=== PATIENT | female | born 1975 | race Caucasian/White ===

== ENCOUNTER 2018-09-15 14:08 | Emergency (ER) | payer BC, SELFPAY ==
[2018-09-15 14:13] VITALS: BP 173/93; PULSE 115; RESP 16; TEMP 37.2; O2SAT 99
[2018-09-15 15:41] VITALS: BP 111/62; PULSE 62; TEMP 36.7; O2SAT 100
[2018-09-15 15:45] VITALS: BP 137/77; PULSE 94; RESP 18; TEMP 36.9; O2SAT 97
--- NOTE | 2018-09-15 16:12 | ED.GENADUL_ITS ---
Discharge Plan Disposition Patient Disposition: HOME Condition: Stable Discharge Details Chief Complaint: Sorethroat Clinical Impression: Acute streptococcal pharyngitis Primary Care Provider: Denise Wheeler ED Provider: Tish Nascimento Home Meds and New Rx's Prescriptions: New cephalexin [Keflex] 500 mg capsule 500 mg PO BID 10 Days Qty: 20 RF: 0 Continued furosemide 20 MG tablet 40 mg PO DAILY Qty: 2 RF: 0 dipyridamole 25 MG tablet 25 mg PO TID RF: 0 cholecalciferol (vitamin D3) [Vitamin D3] 2,000 UNIT capsule 2,000 unit PO HS RF: 0 prednisone 10 MG tablet 5 mg PO DAILY RF: 0 sildenafil [Viagra] 25 MG tablet 25 mg PO TID RF: 0 omeprazole 10 MG capsule,delayed release(DR/EC) RF: 0 methotrexate sodium 2.5 MG tablet 8 tab PO DIRECTED RF: 0 aspirin [Aspirin Low-Strength] 81 MG tablet,chewable 81 mg PO DAILY RF: 0 folic acid 1 MG tablet 2 mg PO HS RF: 0 calcium carbonate-vitamin D3 1 EACH tablet 3 tab PO DAILY RF: 0 nifedipine 60 mg Tablet Extended Release 60 mg PO DAILY RF: 0 Discharge Instructions Instructions: Pharyngitis (ED) Additional Instructions: Take Tylenol as needed and directed for pain. Call your primary care doctor for reevaluation next week. Follow-up with your scheduled appointment with your deburring machine operator next month. Follow-up with an ear nose and throat doctor for evaluation of your chronic postnasal drip. Return to the emergency department if you develop any worsening or new concerning symptoms. Referrals: Red Rogel MD [ 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 Vitals within normal limits. Afebrile. Patient appears nontoxic. She has posterior pharyngeal erythema and edema but uvula is midline and there is no peritonsillar abscess. No lymphadenopathy. No submandibular swelling. No drooling. Lungs clear to auscultation. No hepatosplenomegaly. Rapid strep positive. There is an interaction with amoxicillin with her methotrexate. Prescription for Keflex given. Patient also complained of chronic postnasal drip since March. She was instructed that the most common cause for this could be allergies and to consider [id number] allergy oral medication or intranasal steroids. She is instructed to follow-up with primary care doctor for reevaluation and for referral to ENT if her postnasal drip does not improve or worsens as a polyp is also consideration. She is instructed to follow-up with her scheduled appointment with her deburring machine operator next month. She is instructed to return here worse. Medical Records Medical records reviewed: Yes I reviewed the patient's medical records. Lab Data Lab results reviewed: Yes I reviewed the patient's lab results. Rapid strep positive. HPI General Mode of arrival: ambulatory . Date/Time Provider Initiated Documentation: 09/15/18 16:07 . Limitations to Documentation: no limitations . Information obtained by: patient . HPI Narrative: Patient is a 43-year-old female with a history of sore throat since yesterday. Patient admits to pain with swallowing. She also admits to occasional cough with occasional mucus but otherwise denies any shortness of breath. She denies any known fever. She does admit to chronic postnasal drip since March. She states she saw her primary care doctor for this 1 month ago and was prescribed Z-David without improvement. Patient states she is chronically immunosuppressed due to being on methotrexate for her polyarteritis nodosa. She states she last received this injection yesterday which she receives weekly. She denies any neck pain. Related Data Home Medications Medication Instructions Recorded Confirmed furosemide 40 mg PO DAILY #2 tab-cap 01/18/16 09/15/18 aspirin [Aspirin Low-Strength] 81 mg PO DAILY 06/20/16 09/15/18 calcium carbonate-vitamin D3 3 tab PO DAILY 06/20/16 09/15/18 folic acid 2 mg PO HS 06/20/16 09/15/18 methotrexate sodium 8 tab PO DIRECTED 06/20/16 09/15/18 omeprazole 06/20/16 prednisone 5 mg PO DAILY 06/20/16 09/15/18 sildenafil [Viagra] 25 mg PO TID 06/20/16 09/15/18 cholecalciferol (vitamin D3) 2,000 unit PO HS 10/09/17 09/15/18 [Vitamin D3] dipyridamole 25 mg PO TID tab-cap 10/09/17 09/15/18 cephalexin [Keflex] 500 mg PO BID 10 Days #20 cap 09/15/18 nifedipine 60 mg PO DAILY 09/15/18 09/15/18 Previous Rx's Medication Instructions Recorded cephalexin [Keflex] 500 mg PO BID 10 Days #20 cap 09/15/18 Allergies Allergy/AdvReac Type Severity Reaction Status Date / Time lactose AdvReac Intermediate stomach Unverified 09/15/18 14:13 aches General Stated Complaint: Sorethroat ARMANI: 4 Review of Systems Review of Systems All systems reviewed & are unremarkable except as noted in HPI and below Constitutional Reports as per HPI, Denies chills and Denies fever(s) Eyes Denies blurry vision ENT Denies dizziness, Reports sore throat and Denies throat swelling Cardiovascular Denies chest pain and Denies dyspnea Respiratory Reports cough and Denies dyspnea Gastrointestinal Denies abdominal pain, Denies diarrhea and Denies vomiting Genitourinary Denies hematuria and Denies dysuria Musculoskeletal Denies back pain and Denies numbness Integumentary/Breasts Denies lesions and Denies rash Neurologic Denies dizziness, Denies focal weakness and Denies numbness Allergic/Immunologic Denies throat swelling [facility] Medical History Polyarteritis nodosa (Acute) Obesity (Chronic) Surgical History Appendectomy Endometrial Ablation Family History Mother RA (rheumatoid arthritis) Essential hypertension Hyperlipidemia Father Essential hypertension Hyperlipidemia Grandmother Breast cancer Grandmother Breast cancer Social History Smoking/Tobacco Use Status: Never Alcohol Intake: never Drug use: Never Do you feel safe at home: Yes Do you feel safe in your relationship?: Yes Exam Const General: cooperative and healthy appearing Orientation: alert and awake [facility] Head: normal to inspection Ears: hearing grossly normal bilaterally, external ears normal and TM's normal bilaterally General nose exam: external nose normal Face and sinus: normal facial exam Mouth: oral mucosae normal Teeth and gingiva: dentition normal Throat: uvula midline, no peritonsillar masses and posterior oropharynx abnormal edema and erythema; no exudates Eyes General: appearance normal, both eyes and all related structures Eyelids: eyelids normal Pupils: PERRL EOM: EOM intact bilaterally Neck Neck: normal visual inspection, no meningeal signs, trachea midline, supple, no anterior neck swelling and No submandibular swelling Lymphatic: no lymphadenopathy noted Chest Chest: normal inspection of the chest Resp Effort & Inspection: normal respiratory effort and able to speak in complete sentences Auscultation: clear to auscultation bilaterally Cardio Rate: regular rate Rhythm: regular rhythm GI Inspection: normal to inspection Palpation: soft, not firm, no guarding, no hepatosplenomegaly, no masses and nontender Auscultation: normal bowel sounds Skin General skin exam: no rashes or lesions noted Neuro General: alert and awake Cognition: normal cognition Speech: speech normal Gait: normal gait Motor: muscle tone normal throughout Sensory Exam: no sensory deficits noted Extrem General: normal to inspection, full ROM and normal capillary refill Psych Appearance: grossly normal Mental Status: mental status grossly normal Speech and Movement: speech and movement normal Affect: normal affect Thought Process: normal Course Vital Signs Temperature 99.0 F 09/15/18 14:13 Pulse 115 H 09/15/18 14:13 Respiratory Rate 16 09/15/18 14:13 Blood Pressure 173/93 H 09/15/18 14:13 Pulse Oximetry 99 09/15/18 14:13 Temperature 98.4 F 09/15/18 15:45 Temperature Source Temporal Artery Scan 09/15/18 15:45 Pulse 94 H 09/15/18 15:45 Respiratory Rate 18 09/15/18 15:45 Respiratory Effort 09/15/18 14:13 Blood Pressure 137/77 09/15/18 15:45 Blood Pressure Position Sitting 09/15/18 14:13 Pulse Oximetry 97 09/15/18 15:45 Oxygen Delivery Method Room Air 09/15/18 15:45 Oxygen Flow Rate 0 09/15/18 15:45 Lab/Test Results Lab/Test Results: POC Strep Test-HEATHER(Rapid) Start: 09/15/18 14:22 Freq: Status: Active Protocol: Document 09/15/18 14:22 AC (Rec: 09/15/18 14:22 AC [email or web address]) Strep test-HEATHER(Rapid)-POC POC-Strep test-HEATHER (Rapid) Positive POC-Strep test-HEATHER (Rapid) Positive
== END 2018-09-15 16:29 | disposition home or self-care (01) ==
PROVIDERS: Emergency Provider Physician Assistant; PCP Family Medicine
DX: J02.0 Streptococcal pharyngitis (principal)
CPT/HCPCS: 87880; 99283

== ENCOUNTER 2019-04-03 06:08 | Day surgery (SDC) | payer BC, SELFPAY ==
[2019-04-03] VITALS (27 sets, daily range): BP systolic 128–157; BP diastolic 62–100; PULSE 69–86; RESP 11–20; TEMP 36.2–36.6; O2SAT 93–100
[2019-04-03] MEDS: fentaNYL 100 MCG/2 ML VIAL ×2 (06:20→06:25)
[2019-04-03] MEDS: Midazolam 2 MG/2 ML VIAL (06:22)
--- NOTE | 2019-04-03 06:40 | DI.RAD_ITS ---
EXAM: XR KNEE RT 1V INDICATION: trauma. COMPARISON: RIGHT KNEE COMPLETE from 04/14/2008 TECHNIQUE: 2D digital imaging was performed. FINDINGS: A single frontal view of the knee was obtained. There is lateral dislocation of the patella. There is a 1.2 centimeter osseous density superior to the patella which may represent a displaced fracture. Degenerative changes are present. There is an area of sclerosis seen in the distal metaphyseal reg ion of the right femur. This is unchanged compared to the prior examination from 04/14/2008. IMPRESSION: 1. Lateral patellar dislocation. 2. 1.2 cm density superior to the patella suspicious for a chip or avulsion fracture. 3. Stable area of sclerosis in the distal metaphysis of the right femur since 04/14/2008. This may r epresent a bone island or ossifying fibroma
[2019-04-03] MEDS: MORPHine 10 MG/ML VIAL 6 MG IVP (06:54)
--- NOTE | 2019-04-03 06:55 | W.ED.GENAD ---
Discharge Plan Disposition Patient Disposition: [facility] INPATIENT Condition: Stable Discharge Details Chief Complaint: Orthopedic Clinical Impression: Closed dislocation of right patella Primary Care Provider: Denise Wheeler ED Provider: Harry Silva Meds and New Rx's Prescriptions: No Action furosemide 20 MG tablet 40 mg PO DAILY Qty: 2 RF: 0 dipyridamole 25 MG tablet 25 mg PO TID RF: 0 cholecalciferol (vitamin D3) [Vitamin D3] 2,000 UNIT capsule 4,000 unit PO HS RF: 0 prednisone 10 MG tablet 5 mg PO DAILY RF: 0 sildenafil [Viagra] 25 MG tablet 25 mg PO TID RF: 0 omeprazole 10 MG capsule,delayed release(DR/EC) 10 mg PO DAILY RF: 0 methotrexate sodium 2.5 MG tablet 8 tab PO DIRECTED RF: 0 aspirin [Aspirin Low-Strength] 81 MG tablet,chewable 81 mg PO DAILY RF: 0 folic acid 1 MG tablet 2 mg PO HS RF: 0 calcium carbonate-vitamin D3 1 EACH tablet 3 tab PO DAILY RF: 0 nifedipine 60 mg Tablet Extended Release 60 mg PO DAILY RF: 0 Medical Decision Making Patient with right patella dislocation. The dislocation occurred prior to her falling and she has history of same. No injury with the fall. Vital signs normal. She had received fentanyl in route. She was given more fentanyl here and I attempted to get the leg extended and reduce the patella. She was unable to tolerate this at all. Patient was verbally consented for procedural sedation with fentanyl and Versed. Risk and benefits were discussed with her. She was placed on the monitor and oxygen with capnometry applied. She was given more fentanyl as well as Versed and was appropriately sedated. However, even with this sedation still unable to get her fully extended or get the patella reduced. Case discussed with orthopedics, Dr. Lugo. He will come in and take the patient to the operating room for closed reduction. Patient made aware. Now that her sedation is worn off she is complaining of pain. She is given IV morphine for pain control until she can be taken to the OR. HPI General Mode of arrival: EMS. Date/Time Provider Initiated Documentation: 04/03/19 06:25. Limitations to Documentation: no limitations. Information obtained by: patient, EMS and RN notes reviewed. HPI Narrative: Patient is brought in by EMS after her right patella dislocated while walking her dog. She has history of similar problems. Once it dislocated she fell. She denies injury from the fall itself. Usually she is able to get the patella reduced on her own. She was unable to do that this time. She was outside for close to half an hour before family realized that. EMS was called. She was given fentanyl in route and arrives here with complaint of right knee pain. Related Data Home Medications Medication Instructions Recorded Confirmed furosemide 40 mg PO DAILY #2 tab-cap 01/18/16 04/03/19 aspirin [Aspirin Low-Strength] 81 mg PO DAILY 06/20/16 04/03/19 calcium carbonate-vitamin D3 3 tab PO DAILY 06/20/16 04/03/19 folic acid 2 mg PO HS 06/20/16 04/03/19 methotrexate sodium 8 tab PO DIRECTED 06/20/16 04/03/19 omeprazole 10 mg PO DAILY 06/20/16 04/03/19 prednisone 5 mg PO DAILY 06/20/16 04/03/19 sildenafil [Viagra] 25 mg PO TID 06/20/16 04/03/19 cholecalciferol (vitamin D3) 4,000 unit PO HS 10/09/17 04/03/19 [Vitamin D3] dipyridamole 25 mg PO TID tab-cap 10/09/17 04/03/19 nifedipine 60 mg PO DAILY 09/15/18 04/03/19 Allergies Allergy/AdvReac Type Severity Reaction Status Date / Time lactose AdvReac Intermediate stomach Unverified 04/03/19 06:48 aches General Stated Complaint: Orthopedic ARMANI: 2 Review of Systems Narrative: 01/21 Review of Systems completed and is negative except as stated above in HPI (Systems reviewed: Const, Eyes, ENT, Resp, CV, GI, , MSK, Skin, Neuro) [facility] Medical History (Updated 04/03/19 @ 06:53 by Harry Silva MD) Obesity (Chronic) Polyarteritis nodosa (Acute) Vasculitis (Chronic 10/09/17) Surgical History Appendectomy Endometrial Ablation Social History Smoking/Tobacco Use Status: Never Alcohol Intake: never Drug use: Never Substance use type: does not use Do you feel safe at home: Yes Do you feel safe in your relationship?: Yes Exam Narrative Exam Narrative: Vitals: Afebrile. Vital signs normal with normal room air pulse ox. Const: Obese female very uncomfortable and in pain. HEENT: NC/AT. Normal facial exam. Neck: Supple. Trachea midline. Lungs: Normal respiratory effort. Lungs are clear. Cor: RRR without murmur/gallop. Good distal pulses. Neuro: A+O x 3. Normal speech and mentation. No gross motor or sensory deficit. Ext: Right lower extremity flexed. Unable to extend without severe pain. Patella dislocation laterally noted. Neurovascularly intact distally. Skin: Warm and dry with abrasion or laceration. Course Vital Signs Vital signs: Vital Signs Temperature 97.9 F 04/03/19 06:04 Pulse 71 04/03/19 06:04 Respiratory Rate 20 04/03/19 06:04 Blood Pressure 137/89 04/03/19 06:04 Pulse Oximetry 99 04/03/19 06:04 Temperature 97.9 F 04/03/19 06:04 Temperature Source Skin 04/03/19 06:04 Pulse 71 04/03/19 06:04 Respiratory Rate 20 04/03/19 06:04 Blood Pressure 137/89 04/03/19 06:04 Blood Pressure Position Supine 04/03/19 06:04 Pulse Oximetry 99 04/03/19 06:04 Oxygen Delivery Method Room Air 04/03/19 06:04 Oxygen Flow Rate 0 04/03/19 06:04 Pain Level 10 04/03/19 06:04 Procedures Procedural Sedation Indication: fracture/dislocation reduction Presedation Evaluation: Patient with right patella dislocation not tolerating attempted reduction with just pain medication. Neurovascularly intact distally. Normal vital signs. ASA Class: III Preparation: alarm security or surveillance monitor applied, pulse oximeter, capnometry used, supplemental O2 applied, suction/airway equipment at bedside and IV secured Fentanyl: IV Midazolam: IV Patient Tolerated Procedure: no complications Complications: none Additional Comments: A total of 200 mcg of fentanyl and 2 mg of Versed given. Patient appropriately sedated but still unable to get leg fully extended or patella reduced.
--- NOTE | 2019-04-03 07:47 | DI.VRAD_ITS ---
PROCEDURE INFORMATION: Exam: XR Right Knee Exam date and time: 04/03/2019 6:41 AM Age: 43 years old Clinical indication: Injury or trauma; Initial encounter; Patella or knee; Right; Severity of dislocation not specified; Injury date: 04/03/19; Injury details: Fall, trauma TECHNIQUE: Imaging protocol: XR Right knee. Views: 1 or 2 views. COMPARISON: No relevant prior studies available. FINDINGS: There is a single portable images submitted for review. The patella is laterally dislocated. There is a mineralized density superior to the patella which measures 1.2 cm. Mild degenerative changes with small osteophyte formation at the lateral and patellofemoral compartments. Indeterminate 3.2 cm lobulated area of sclerosis at the distal femoral metadiaphysis. IMPRESSION: 1. Lateral patellar dislocation. There is a 1.2 cm mineralized density at the superior aspect of the patella which may represent a chip or avulsion fracture. There is limited evaluation, as described. 2. Mild degenerative arthritis. 3. Indeterminate lobulated sclerosis of the distal femoral metadiaphysis which may represent bone island, ossifying fibroma, among others. Dictated and Authenticated by: Chelle Neely MD. Ordering:LEX Mcdonald MD
[2019-04-03] MEDS: Bupivacaine 0.25% Pres-Free 30 ML VIAL (07:50)
[2019-04-03] MEDS: Lactated Ringers 1,000 ML 30 ML IV (08:05)
[2019-04-03] MEDS: Ketorolac 15 MG/ML VIAL IVP (08:15)
[2019-04-03] MEDS: HYDROcodone 5/Acetaminophen 325 TAB PO (10:24)
--- NOTE | 2019-04-04 06:48 | ROE_ITS ---
REPORT OF OPERATIVE PROCEDURE DATE OF PROCEDURE April 03, 2019 PREOPERATIVE DIAGNOSIS Dislocated right patella. POSTOPERATIVE DIAGNOSIS Dislocated right patella. PROCEDURES 1. Closed reduction of dislocated right patella. 2. Injection right knee with local anesthetic. ANESTHESIA General, Pranay Almodovar, GIANA INDICATIONS This is a 43-year-old white female who had a misstep while walking her dog earlier today dislocating her right patella. She has dislocated this patella numerous times in the past. She has always been ab le to self reduce it. This time, she was unable to reduce it. She went to the Emergency Room where vianey connor attempts at reduction were unsuccessful using conscious sedation. I was consulted and recommen ded that the reduction be performed under general anesthesia. The patella was displaced completely l aterally and rotated 90 degrees to its normal axis so that the patella was facing directly laterally. I was concerned about possible fracture of the patella as it was reduced; therefore, I felt that it should be done with muscle paralysis so there would be not much force. The risks and complications we re explained to the patient and her in detail. I also discussed with them possible open reduc tion if closed reduction was unsuccessful. PROCEDURE The patient was taken to the Operating Room on 04/03/2019. She was kept on her ER stretcher. A genera l anesthetic was administered and muscle relaxation with succinylcholine was given. Once she had good relaxation, I simply extended her knee and I was able to reduce the patella with almost no force. I then using sterile technique injected into the knee 20 cc of 0.5% Marcaine solution for postoperative analgesia. Gentle flexion of the knee showed that the patella was fairly stable and did not tend to dislocate. The patient was placed in a knee immobilizer splint. Her anesthesia was reversed without c omplications. She was discharged to the Recovery Room in good condition. The patient was later discharged home from the second floor nursing unit when fully recovered from he r anesthesia. She was given instructions to use crutches to walk along with the knee immobilizer spli nt. She will be weightbearing as tolerated to the right leg. She was told to use the immobilizer spli nt at all times, except to shower and dress. When she is out of the immobilizer splint, she is cautio cody to keep her leg extended so that the patella will stay reduced. I told her I did not want her sha ding her knee for the next 6 weeks. The patient is told to take ibuprofen 800 mg p.o. q. 6 hours p.r.n. for pain at home. She is instruct ed to apply ice to her patella four times a day for an hour each time over the next two to three days . She is going to call my office later this week and make an appointment for three weeks for follow up.
== END 2019-04-03 11:25 | disposition home or self-care (01) ==
LOC: ER 07:43 → DSU 07:47 → ICU 08:59
PROVIDERS: Emergency Provider Emergency Medicine; PCP Family Medicine; Visit Provider Orthopaedic Surgery
PROC: 0QSFXZZ Reposition Left Patella, External Approach (ICD-10-PCS; CPT 20610; principal; 2019-04-03 07:30)
DX: M22.01 Recurrent dislocation of patella, right knee (principal)
CPT/HCPCS: 20610; 27562; 27560; 96374; 96375; 99285; 73560; 99283; J1885; J2250; J2270; J2405; J3010; L1830

== ENCOUNTER 2019-04-29 00:52 | Outpatient (CLI) | payer BC, SELFPAY ==
--- NOTE | 2019-04-29 15:46 | DI.CT_ITS ---
EXAM: CT LOWER EXTREMITY RT WO CLINICAL HISTORY: RECURRENT DISLOCATION R KNEE, S83.004A TECHNIQUE: CT examination of the knee was performed utilizing multislice acquisition and multiplanar reconstruction. COMPARISON: No exams were available for comparison FINDINGS: There is marked lateral patellar subluxation, which appears chronic, with subchondral sclerosis of ce ntral portion of the patella and of the lateral trochlea with marked hypertrophic changes of the late ral trochlea and subchondral cyst formation at this site as well. Small osseous bodies are present m edial and inferior to the patella, probably chronic. No acute fracture seen. Moderate marginal oste ophyte formation seen associated with medial and lateral tibiofemoral joints as well. IMPRESSION: Findings consistent with marked chronic lateral patellar subluxation and associated degenerative adames ges.
== END 2019-04-29 01:12 ==
PROVIDERS: PCP Family Medicine; Visit Provider Orthopaedic Surgery
DX: M22.01 Recurrent dislocation of patella, right knee (principal); M85.48 Solitary bone cyst, other site; M17.11 Unilateral primary osteoarthritis, right knee
CPT/HCPCS: 73700

== ENCOUNTER 2019-06-19 09:10 | Outpatient (CLI) | payer BC, SELFPAY | END 2019-06-19 09:30 | PROVIDERS: PCP Family Medicine; Visit Provider Student in an Organized Health Care Education/Training Program | DX: Z01.818 Encounter for other preprocedural examination (principal) ==

== ENCOUNTER 2019-06-24 07:06 | Inpatient (IN) | payer BC, SELFPAY ==
[2019-06-19 09:20] VITALS: BP 126/78; PULSE 85; RESP 18; TEMP 37.1; O2SAT 97
--- NOTE | 2019-06-19 11:05 | NUR.NOTE ---
Addendum entered by Conor Wolfe 06/19/19 13:16: Spoke with pAlexis via phone on 06/19/19 @ [id number]: Pt. 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 Lugo's instructions. Original Note: 06/19/19: Contacted Parish's office messaged [facility] and spoke with Kari (10:26) regarding pt. instructions to hold or continue taking her Dipyridamole, aspirin, and viagra, and prednisone this RN stated they should contact pt. prescribing provider Jazmyne Servin @ [facility]. Kari stated office will contact provider, can contact pt. at home with instructions. During visit, this RN received a message from Bridger from orthopedics office, stating that per Dr. Lugo's instructions, pt. is to okay for aspirin up until DOS, Prednisone of okay to take morning of, and to hold the dipridamole and viagra day of surgery. It was also conveyed to ortho office for them to reach out to Swimming Pool Maintenance to verify. Pt. stated that she will contact her as well for further clarification. Office stated they will contact pt. Nursing Note:
--- NOTE | 2019-06-19 16:19 | CMPROGNOTE_ITS ---
- If Service Date Differs Date of service: 06/19/19 Time of Service: 16:19 Care Management Progress Note CM was consulted to meet with Yvonne during her pre op visit for her Patella Realignment scheduled for 06/24/[address] Lugo. Yvonne lives in [place] with her , Juan and their sixteen year old son. Juan is disabled from a car accident many years ago, so he is home and will be providing Yvonne with her care, as needed at home. 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 She has [employer]BS through work. She already has crutches, a FWW, a raised toilet seat and a shower chair. She does not have an AD, or access to the Portal, but may be interested in both post surgically. Dr. Lugo set the expectation with Yvonne that she may be at [facility] recovering for 3-4 days. Yvonne did not have any additional questions or concerns at this time.
[2019-06-24] VITALS (8 sets, daily range): BP systolic 107–142; BP diastolic 56–92; PULSE 67–96; RESP 12–19; TEMP 36.3–36.8; O2SAT 96–100
[2019-06-24] MEDS: Lactated Ringers 1,000 ML 80 ML IV ×2 (08:20→16:15)
[2019-06-24] MEDS: ceFAZolin 3,000 MG in Normal Saline 100 ML 200 MG IVPB (11:45)
--- NOTE | 2019-06-24 11:45 | DI.RAD_ITS ---
EXAM: XR KNEE RT 1V CLINICAL HISTORY: DISLOCATION OF RIGHT PATELLA TECHNIQUE: 2D and realtime digital imaging was performed. COMPARISON: XR KNEE RT 1V from 04/03/2019 XR KNEE RT 2V AP,LAT from 06/24/2019 FINDINGS: Fluoroscopy was provided for Dr. Lugo during the performance of an anterior tibial tuberosity head sfer. Please refer to the procedure report for complete details. Fluoro time: 3.7 seconds RADIATION DOSE DELIVERED:
[2019-06-24] MEDS: Hydrogen Peroxide 3% 480 ML BTL (14:00)
--- NOTE | 2019-06-24 15:29 | DI.RAD_ITS ---
EXAM: XR KNEE RT 2V AP,LAT CLINICAL HISTORY: check fixation in RR. TECHNIQUE: 2D digital imaging was performed. COMPARISON: XR KNEE RT 1V from 06/24/2019 FINDINGS: BONES: No acute fracture is present. No bony destructive lesion is seen. JOINTS: The patient is now status post patellofemoral joint replacement and status post anterior tibi al tuberosity transfer. SOFT TISSUE: Postsurgical changes are seen in the soft tissues. IMPRESSION: Postsurgical changes in the right knee. DATA REPOSITORY: RADIATION DOSE DELIVERED:
[2019-06-24] MEDS: HYDROmorphone 2 MG/ML VIAL IVP ×2 (16:13→16:20)
[2019-06-24] MEDS: LORazepam 2 MG/ML VIAL 0.5 MG IVP (16:32)
[2019-06-24] MEDS: methylPREDNISolone SUCC 125 MG VIAL IVP (16:41)
[2019-06-24] MEDS: Ketorolac 30 MG/ML VIAL IVP (18:28)
[2019-06-24] MEDS: ceFAZolin 2 GM/50 ML BAG IVPB (18:29)
[2019-06-24] MEDS: Normal Saline Flush 10 ML SYR IV (18:31)
[2019-06-24] MEDS: oxyCODONE-CR 10 MG TABCR PO (20:47)
[2019-06-24] MEDS: Docusate Sodium 100 MG CAP PO (20:47)
[2019-06-24] MEDS: Folic Acid 1 MG TAB 2 MG PO (22:18)
[2019-06-24] MEDS: Cholecalciferol (Vitamin D3) 1,000 UNIT TAB 4000 UNITS PO (22:18)
[2019-06-24] MEDS: POTASSIUM CHLORIDE/0.9% NACL 1,000 ML 125 MEQ IV (23:23)
[2019-06-25] MEDS: Normal Saline Flush 10 ML SYR IV ×3 (00:16→17:49)
[2019-06-25] MEDS: Ketorolac 30 MG/ML VIAL IVP ×5 (00:16→23:42)
[2019-06-25] MEDS: ceFAZolin 2 GM/50 ML BAG IVPB ×4 (00:16→17:50)
--- NOTE | 2019-06-25 03:24 | NUR.NOTE ---
Nursing Note: 06/25/2019 Patient stated to this RN that she has not been able to do good ambulation since March of last year since her leg got dislocated. She states she believes her muscles in her legs have atrophied and that she thinks she may benefit with some strengthening exercises before being able to bear weight
[2019-06-25 03:30] VITALS: BP 122/75; PULSE 75; RESP 20; TEMP 37.2; O2SAT 98
[2019-06-25 06:42] LABS: HCT 32.5 % (36.0-46.0); HGB 10.2 g/dL (12.0-15.5); Mean Corp. HGB Concentration 31.4 g/dL (32.0-36.0); Mean Corpuscular Hemoglobin 30.2 pg (27.0-33.0); Mean Corpuscular Volume 96.2 fL (80-95); Mean Platelet Volume 9.2 fL (8.0-11.0); Platelet Count 461 x1000/uL (130-400); RBC 3.38 m/cumm (4.00-5.20); RBC Distribution Width 15.3 % (11.7-14.6)
[2019-06-25 06:51] LABS: White Blood Cell Count 26.15 k/cumm (4.4-10.8)
[2019-06-25 07:35] VITALS: BP 114/72; PULSE 85; RESP 17; TEMP 36; O2SAT 98
[2019-06-25] MEDS: Calcium 600mg/Vit D 200U TAB 3 TAB PO (07:42)
[2019-06-25] MEDS: Multivitamin w/Minerals TAB 1 TAB PO (07:43)
[2019-06-25] MEDS: Pantoprazole 40 MG TABCR PO (07:43)
[2019-06-25] MEDS: predniSONE 5 MG TAB PO (07:43)
[2019-06-25] MEDS: oxyCODONE-CR 10 MG TABCR PO ×2 (07:43→19:35)
[2019-06-25] MEDS: Furosemide 40 MG TAB PO (07:43)
[2019-06-25] MEDS: Docusate Sodium 100 MG CAP PO ×3 (07:43→19:35)
[2019-06-25] MEDS: Aspirin 81 MG CHEW PO (07:43)
[2019-06-25] MEDS: POTASSIUM CHLORIDE/0.9% NACL 1,000 ML 125 MEQ IV (08:01)
--- NOTE | 2019-06-25 08:48 | PT.INIE ---
PT Notes Visit Reasons: POST-OP R TIBIAL OSTEOTOMY & P-F JOINT REPLACEMENT Physical Therapy Inpatient Initial Evaluation Date: 06/25/2019 Referring Doctor: Sidney Lugo MD PT Orders: PT CONSULT: S/P Ortho surgery Precautions: Fall. Standard. Per verbal order as of 10:00 this morning, patient is NWB on right LE. Patient Profile/Admitting Diagnosis: Patient is a 44-year-old female with recurrent patellar dislocation and osteoarthritis of right knee status post Lencho procedure and patellofemoral joint replacement on postoperative day 0. PMHX: Medical History (Updated 06/08/19 @ 12:25 by Sidney Lugo MD) Obesity (Chronic) Polyarteritis nodosa (Acute) Vasculitis (Chronic 10/09/17) Surgical History Appendectomy Endometrial Ablation Social History/Home Situation: Patient lives with in a private home with 2-3 steps to enter. 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 She states that she has not been moving a lot since the fall she had in the morning of April 03, 2019. She elaborates that she has been using the front wheeled walker for all short distance and essential ambulation only. Prior to April 03, patient is independent with all aspects of ADLs without the need for any assistive device nor adaptive. Equipment Owned/DME: Front wheeled walker Subjective: Patient is highly anxious about moving out of the bed and expresses how she is very much aware of pain. She states that she has not received any prior skilled physical therapy services and feels very much de-conditioned and weak. She complained of heaviness of the R LE in standing. She is releived to know that her pain level is very much controlled once she was helped up and negotiated distance from bed to recliner some 8 feet away. Objective: General Observation: Patient lying down in bed. Knee immobilizer on the right LE. IV on right LE. Larios catheter in place. Anti-thromboembolic pump on the left LE. TEDS on the left LE. Mental Status: Alert and oriented x4 Pain: 2-3/10 at rest. Five 5/10 with mobility ADL performance ROM: Right Upper Extremity: Shoulder Flexion WFL. Shoulder abduction WFL. Elbow flexion WFL. Wrist flexion WFL. Opening and closing of hand WFL. Left Upper Extremity: Shoulder Flexion WFL. Shoulder abduction WFL. Elbow flexion WFL. Wrist flexion WFL. Opening and closing of hand WFL. Right Lower Extremity: Hip flexion NT. Hip abduction NT. Knee flexion NT. Ankle dorsiflexion WFL. Ankle plantarflexion WFL. Left Lower Extremity: Hip flexion allows up to 20 degrees of hip flexion beyond 90 while seated at edge of bed. Hip abduction WFL. Knee flexion WFL. Ankle dorsiflexion WFL. Ankle plantarflexion WFL. Strength: Right Upper Extremity: Shoulder flexors 4/5. Shoulder abductors 4/5. Elbow flexors 4/5. Elbow extensors 4-/5. 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 Left Upper Extremity: Shoulder flexors 4/5. Shoulder abductors 4/5. Elbow flexors 4/5. Elbow extensors 4-/5. 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 Right Lower Extremity: Hip flexors 3-/5 grossly. Hip abductors 3-/5 grossly. Knee flexors NT. Knee extensors NT. Ankle dorsiflexors 3/5. Ankle plantarflexors 4/5. Left Lower Extremity: Hip flexors 3-/5. Hip abductors 4/5. Knee flexors 4/5. Knee extensors 4-/5. Ankle dorsiflexors 4/5. Ankle plantarflexors 4/5. Sensation: Intact as to pain and pressure on bilateral lower extremities. Bed Mobility/Transfers: Rolling minimal assist of 2 Supine to sit minimal assist of 2 Sit to supine minimal assist of 2 Sit to stand minimal assist of 2 Stand to sit minimal assist of 2 Bed to chair minimal assist of 2 Chair to bed minimal assist of 2 Gait: Patient was able to tolerate short ambulation of 8 feet using front wheeled walker from bedside to recliner with complaint of 5/10 pain and heaviness on the right knee. Denies any lightheadedness, chest pain, and headache throughout activity. Balance: Static Sitting: Normal Dynamic Sitting: Normal Static Standing: Poor Dynamic Standing: Poor Special Tests: Mobility Limitations Standardized Measure [facility] 6 clicks Basic Mobility Inpatient Short Form: Raw Score: 14 CMS Score: 61% deficit Informed Consent/Education: Patient instructed in purpose of PT consult and plan of care. Assessment: Generalized deconditioning and weakness, difficulty with walking, impairment in mobility ADL performance, impairment in balance, and unsteadiness of gait due to postoperative status. Patient is a 44-year-old female with recurrent patellar dislocation and osteoarthritis of right knee status post Lencho procedure and patellofemoral joint replacement on postoperative day 0. Patient presents with clinical signs and symptoms consistent with current/admitting diagnoses that have resulted to mobility limitations, gait instability, generalized weakness, and impairment of motor control as demonstrated by the following impairment level findings: 1. Decreased strength to B UE/LE major muscle groups 2. Impaired sitting/standing balance 3. Impaired activity tolerance 4. Limitation of joint range of motion in right knee Impairments are contributing to the following functional limitations: 1. Dependent bed mobility skills 2. Increased dependence with transfers 3. Inability to safely ambulate without assistive device and physical assistance 4. Increase completion time for mobility ADL performance 5. Increased fall risk 6. Inability to negotiate steps alone safely Patient is assessed as a 28206 moderate complexity based on the following: History: 44-year-old female with impairment level findings, functional limitations, and [place] AM PAC score of 61% Examination: Demonstrable impairment in strength, balance, and range of motion with underlying impairments and functional limitations as documented above Presentation:Evolving Decision Makin moderate complexity Goals: Goals X1 week 1. Supine-Sit independent 2. Sit-Supine independent 3. Sit-Stand supervision 4. Stand-Sit supervision 5. Bed-Chair supervision 6. Chair-Bed supervision 7. Supervision gait on level surface with use of least restrictive device for at least 300 feet without report of pain nor dyspnea 8. Supervision stair negotiation while holding onto bilateral rails for at least 10 steps without report of pain nor dyspnea 9. Supervision with home exercise program 10. Good static and dynamic standing balance/tolerance Plan of Care/Treatment Plan: 1-2x/day, 7 days/week x 1 week. Plan of care has been reviewed with the TYPE BAR AND SEGMENT ASSEMBLER providing the service under Physical Therapy direction. Initiate Physical Therapy intervention for strengthening, bed mobility, transfers, gait, stairs, balance training, use of assistive device. DISCHARGE RECOMMENDATIONS: Patient will benefit from home health PT services in order to progress mobility level using least restrictive assistive ambulatory device, assess home safety, identify additional equipment needs, and establish a functional maintenance program that will increase ability of patient to remain at home. TREATMENT CODE/TIME: 35139 times 30 minutes, 43339 x 17 minutes, beginning at 8:48 AM. Thank you very much for this referral. Rosio Cyr PT, DPT, CLT [facility] [place], [place]
[2019-06-25 10:08] VITALS: O2SAT 95
--- NOTE | 2019-06-25 10:38 | W.NUTCONSULT ---
Date of service: 06/25/19 Time of Service: 10:38 Nutritional Consult ASSESSMENT: 44 year old morbidly obese female s/p Total Right Knee Replacement. Following regular meal plan with 75-100% completion. Not at risk for nutritional decline at this time. MONITORING AND EVALUATION: weight, po intake, labs Time Spent in Nutritional Counseling and Treatment: 0 time spent face to face
--- NOTE | 2019-06-25 10:51 | ROE_ITS ---
DATE OF PROCEDURE: June 24, 2019 PREOPERATIVE DIAGNOSIS: 1. Osteoarthritis patellofemoral joint, right. 2. Maltracking right patella. POSTOPERATIVE DIAGNOSIS: Same, plus trochlear dysplasia right femur. PROCEDURE: 1. Patellofemoral joint arthroplasty, right. 2. Lencho tibial tubercle osteotomy, right. ANESTHESIA: General supplemented with a femoral nerve block by Pranay Almodovar CRNA SURGEON: Sidney Lugo M.D. NOZZLE CEMENT SPRAYER HELPER: Vivian Maldonado INDICATIONS: This is a 44-year-old white female with a 20-year history of recurrent dislocations of her right patella. She had been able to self-reduce dislocations until 2018, when she r equired a closed reduction. She has continued to have significant pain her knee since that time. Sh e's had to continue to use crutches. Further evaluation with a CT scan showed evidence of significan t osteoarthritis of the patellofemoral joint and probably dysplasia of the trochlea of the distal fem ur. It also showed lateral maltracking of the patella. Because of her young age, I did not feel tucker t total knee replacement should be consider. Even with a total knee replacement, she would need some kind of patellar realignment. I thought she needed a distal realignment by means of a tibial tuberc le osteotomy. The tibial tubercle osteotomy would be much easier to perform on the knee that did not have a tibial component in place. The patient was sent to see Dr. Brady Ramos at [facility] for a second opinion. He agreed with my recommendation of performing an isolate d patellofemoral joint replacement on the right and simultaneously performing a Lencho-type of tib ial tubercle osteotomy to realign the patella. The patient was aware that she would probably require revision to a total knee replacement at some time. The hope would be that these two procedures woul d give her many years of relief until she required a knee replacement. Also, would obviate the need for a distal realignment of the patella at the time of a future total knee replacement. The risks an d complications of the procedure and expected result were discussed with the patient and her in detail preoperatively. PROCEDURE: The patient was taken to the operating room on 06/24/2019. She was placed supine on the o perating table and a femoral nerve block was performed. A proximal tourniquet was applied to the rig ht thigh. She was placed supine on the operating table. The patient's BMI was 50.8. The right lowe r extremity was prepped and draped free in the usual sterile fashion. The right leg was exsanguinate d by elevation for a couple of minutes and then the tourniquet was inflated to 400 mmHg. The right k nee was then flexed on a bone foam. An incision was made in the midline, beginning about four inches proximal to the patella and then ext ending at least 8 cm distal to the tibial tubercle. The incision was carried down to the fascia. A medial parapatellar capsular incision was then made until the patella could be mobilized and everted. Upon visualizing the distal femur it was much worse than could be determined with the CT scan. The patient had really significant trochlea dysplasia with really no good sulcus and lateral portion of the trochlea. Use of the cutting guides for the patellofemoral replacement was modified and had to b e estimated because of the lack of good anatomical landmarks. Also, while reaming was performed for the distal femoral replacement, the bone was very soft and porotic. This means that I could not have a press fit or bony ingrowth stem because it just wouldn't provide a purchase. The decision was the n made to cement the component in place. The cancellous bed of the component was prepared with modification of the guides. The selected dista l femoral replacement was 7 mm x 5 mm in width. The stem was applied to the component on the back ta ble. The cancellous bed was irrigated with saline solution and dried with peroxide-soaked strip spon ges. One batch of gentamicin-impregnated methylmethacrylate was vacuum-mixed and then was packed int o the prepared bed on the distal femur and then packed on the undersurface of the component itself an d around the stem. The component was placed on the distal femur. The stem engaged the drill holes t hat had previously been made and then using the impactor and mallet, the component was impacted until fully seated. Any slight overlap of the articular cartilage on the borders of the component were th en shaved down flush with the component. It felt, on inspection, that the femoral component was posi tioned quite well. Excess cement was trimmed from the margins of the component while the cement was still soft using the plastic cement removal tool. When the cement around the femoral component had f ully cured, attention was turned to the patella. The patella was resected using freehand resection to a 16 mm thickness. Drill holes for the 32 mm tr i-pronged patella were then made on the medial side of the patella, medializing the component to help with tracking. A lateral fasciectomy was then performed with a rongeur. A lateral retinacular rele ase was also performed at this point. The patella was prepared for cementing with pulse irrigation l avage of saline solution. It was then dried with peroxide-soaked strip sponges. Another batch of ge ntamicin-impregnated methylmethacrylate was vacuum-mixed and was hand packed onto the prepared patell a and onto the back surface of the patellar component. The tri-pronged patellar component was insert ed onto the patella and was pressurized using the patellar clamp. Excess cement was trimmed from the margins of the patellar component while the cement was still soft using the plastic cement removal t ool. When the second batch of methylmethacrylate was cured, the clamp was removed. Patellar trackin g was checked. The patella still had a tendency to track laterally, necessitating the need to a tibi al tubercle osteotomy. An incision was made along the lateral border of the patellar tendon and along the lateral tibial cre st. Muscle was stripped from the lateral tibial cortex with a periosteal elevator. The margins of t he osteotomy were marked out with a marking pen and then electrocautery. Osteotomy was performed pro ximal to the tibial tubercle and extending distally from medial to lateral for at least 6 cm. This w as done with an oscillating saw. The angle was from medial more anterior to lateral more posterior. An osteotome was used to complete the osteotomy proximal to the tibial tubercle. The oscillating sa w was used to complete the osteotomy at the distal end. The osteotomized tibial tubercle was then di splaced medially at least a centimeter. It was temporarily pinned into place with a K-Wire. Patella r tracking now was checked with the K-Wire in place and towel clip on the medial parapatellar incisio n. The patellar tracking was essentially anatomic at this point with no lateral subluxation of the p atella. I then fixed the tibial tubercle osteotomy to the tibia with a 6.5 cancellous screw just dis brooklynn to the prominence of the tibial tubercle and a 3.5 cortical screw using a lag technique on the di stal portion of the osteotomy. The wound was irrigated with Betadine and saline solution. The wound margins were infiltrated with 0.5% Marcaine solution. The lateral compartment fascia was repaired t o the tibial tubercle osteotomy fragment and the patellar tendon with interrupted [id number] sut ures of #1 Vicryl suture material. The medial parapatellar incision was repaired and approximated wi th interrupted horizontal mattress sutures of #1 Vicryl suture material from the joint line to just p roximal to the patella. The most proximal portion of the incision in the quad tendon was repaired wi th interrupted [id number] sutures of #1 Vicryl suture material. At this point patellar tracking was checked passively - I was able to bring her knee to 90 degrees of flexion without lateral sublux ation of the patella. Tracking appeared to be smooth. The knee was then flexed over soft goods agai n and the subcu was approximated with interrupted #2-0 Vicryl sutures and a running subcuticular sutu re of #4-0 Monocryl was performed and then a [place] $T$ Nephew negative pressure dressing was applied utilizing a small battery pack rather than wall suction. The wound was then dressed with ABD pads, w rapped with 6-inch ELLEN bandages and the right knee was immobilized in a knee immobilizer splint to pr otect the osteotomy. The tourniquet had been released after 94 minutes because of a lot of back-blee ding from veins. Once the tourniquet had been released, there was very little bleeding. Any obvious bleeders were cauterized. A fairly dry wound was obtained at the conclusion of the procedure. Cynthia mated blood loss was about 200 cc's. The patient tolerated the procedure well; her anesthesia was re versed without complications and she was discharged to the recovery room in good condition.
[2019-06-25 11:28] VITALS: BP 104/62; PULSE 91; RESP 17; TEMP 36.7; O2SAT 98
--- NOTE | 2019-06-25 12:25 | PHA.ADMREV ---
Pharmacy Clinical Review - Admission Clinical Review lactose Adverse Reaction (Intermediate, Verified 06/24/19 07:58) stomach aches Height 5 ft 8 in Weight 151.5 kg Surgery 06/24/19 to repair dislocating R Patella w/ - Renal Dosing Medications needing adjustments: Reviewed (CrCl~82ml/min) - Anticoagulation Anticoagulation: Hgb 10.2 g/dL (12.0-15.5) L 06/25/19 06:15 Hct 32.5 % (36.0-46.0) L 06/25/19 06:15 Plt Count 461 x1000/uL (130-400) H 06/25/19 06:15 DVT Prohphylaxis: Reviewed (SCD's and MARV's only) Therapeutic Anticoagulation: N/A - Opiate Usage Evaluate Pain Scale/Pains Meds: Reviewed (Oxycontin 10mg q12h, Roberts q6h/prn, MS IVP prn) Scheduled Bowel Reg ordered if on Opiates?: Yes (Docusate po TID) - Relevant Labs Electrolytes, C-Reactive P, ESR: Reviewed (WBC 26.15, Plt 461) - Antimicrobial Stewardship Antibiotic appropriateness: Reviewed (Cefazolin 2gram IV q6h x 4 doses) Surgical Abx d/c within 24 hr: Yes Culture review/Resistance: N/A (no Micro) - DM Control Insulin Dosing: N/A - Heart Failure/MS EF%, ELLEN's, B-Blockers, Diuretics: Reviewed (Furosemide 40mg po daily, Nifedepine ER 60mg Qpm, Pt's own Sildenafil 20mg po TID) - BP Control BP Control: Blood Pressure 104/62 Blood Pressure 114/72 Blood Pressure 122/75 If elevated: Reviewed (BP 104/62) - QTc Review If Elevated: N/A (last QTC 2016) - IV to PO Switch IV Medications: N/A - Home Meds Home Med List reviewed: Reviewed (Patient was told by Rheumalogist to hold MTX injection for now, Using Patient's own Sildenafil and Dipyridamole) - Current meds Current Medication Order Review: Reviewed (Dipyridamole and Sildenafil-Pt's own....also more meds in pharmacy lock box to return @ discharge)
--- NOTE | 2019-06-25 12:55 | PTTR_ITS ---
Date of service: 06/25/19 Time of Service: 12:55 PT Notes Visit Reasons: POST-OP R TIBIAL OSTEOTOMY & P-F JOINT REPLACEMENT Inpatient Physical Therapy Treatment Note [facility] Date: 06/25/2019 PRECAUTIONS: Fall. Standard. NWB on right LE. SUBJECTIVE: Patient demonstrates high anxiety over performance of sit to stand and transfer activity as she feels that she is too weak to move and that her left knee has a tendency to dislocate. She stresses that she has had no structured strengthening program since she fell in the morning of April 03. OBJECTIVE: Patient seen sitting on bedside recliner with legs elevated. Cryo/Cuff secured by loosely placed knee immobilizer on the right side. Larios catheter in place. IV in the right UE. PAIN: Patient reports 4/10 pain on the right LE with transfer activity. BED MOBILITY/TRANSFERS Sit-supine: Minimal assist of 2 Sit-stand: Moderate assist of 2 coming from recliner. Minimal assist of 2 coming from edge of high bed. Stand-sit: Moderate assist of 2 coming from recliner. Minimal assist of 2 coming from edge of high bed. Bed-Chair: Moderate assist of 2 coming from recliner. Minimal assist of 2 coming from edge of high bed. Chair-bed: Moderate assist of 2 coming from recliner. Minimal assist of 2 coming from edge of high bed. GAIT Assistive Device: Front wheeled walker Weight bearing: Nonweightbearing on the right LE Assist: Moderate assist of 2 Distance: 4 feet Deviation: Non-compliant with weightbearing precaution due to high anxiety resulting to unwanted weight bearing on the left LE during transfers. Patient reported 4/10 on on the right LE. THERA ACT: Patient tolerated sit to stand from high bed and demonstrated ability to shift full weight onto the left LE with extensive help and pushing down on the walker using her bilateral upper extremities. Patient was able to stand up x 2 reps and practice pivoting that left foot to the left and to the right while pushing down on front wheeled walker with minimal assist of 2 by PT and PATIENT TRANSPORT ORDERLY. ASSESSMENT: Patient's low self-confidence about her abilities and her high anxiety over her lack of generalized strength and lack of activity since she fell in the morning of last year there are barriers to mobility ADL progression at this time. She requires encouragement and motivation that with good technique she will be able to manage standing up and pivoting a lot better. PLAN: Continue with skilled physical therapy services in order to achieve that were initially established in the POC. Coordinate with nurse for premedication for pain to maximize PT session performance. We will plan on treating patient with independent bed mobility level using leg parking officer on the right LE per orthopedic surgeon recommendation. TREATMENT CODE/TIME: 9753 0 x 39 minutes beginning at 12:55 PM.
--- NOTE | 2019-06-25 13:18 | W.PM.PROGNOT ---
Date of Service Date of service: 06/25/19 Time of Service: 13:18 Assessment and Plan Assessment and plan (1) Status post right partial knee replacement: Status: Acute Assessment and plan: Assessment: Stable postop day #1 patellofemoral replacement on the right for osteoarthritis of the patellofemoral joint. Will be nonweightbearing on the right due to the tibial osteotomy that was performed concurrently with the patellofemoral replacement. Plan: We will mobilize with PT. Will DC Larios tomorrow. Will DC IV fluids today. Plan DC home when she is independent with transfers and ambulation to the bathroom and back and only taking p.o. pain meds. (2) Dislocation of right patella: Status: Acute Assessment and plan: Assessment: Stable postop day #1 Lencho tibial tubercle osteotomy on the right for recurrent dislocations of the right patella. Plan: We will need to be nonweightbearing for 6 weeks to allow the osteotomy to heal. DC home when taking only p.o. pain meds and is independent with transfers and walking short distances. Subjective Subjective Interval history since last seen: She says her pain is well controlled just by the scheduled pain medicines. She has not had to ask for supplemental narcotics. She was able to get a lot of rest last night. She requested the Larios stay in until tomorrow because it is too difficult for her to go to the bathroom. She says that her postop pain is different from her preop pain and she surprised that she can notice a difference at first postop day. Exam Narrative Exam Narrative: She is afebrile vital signs are stable. Hemoglobin 10.2 g this morning. Intake and output is good. She is eating and drinking well. She has good active motion of her right ankle and toes. She has normal sensation and circulation to the right foot. She was able to transfer from her bed to the chair where she is resting now comfortably. Objective Objective Clinical Data: Abnormal lab results 06/25/19 Range/Units 06:15 WBC 26.15 H* (4.4-10.8) k/cumm RBC 3.38 L (4.00-5.20) m/cumm Hgb 10.2 L (12.0-15.5) g/dL Hct 32.5 L (36.0-46.0) % MCV 96.2 H (80-95) fL MCHC 31.4 L (32.0-36.0) g/dL RDW 15.3 H (11.7-14.6) % Plt Count 461 H (130-400) x1000/uL Vital Signs Temperature 36.7 C 06/25/19 11:28 Temperature Source Tympanic 06/25/19 11:28 Pulse 91 H 06/25/19 11:28 Pulse Rhythm Regular 06/25/19 00:31 Respiratory Rate 17 06/25/19 11:28 Respiratory Effort Non-Labored 06/25/19 00:31 Respiratory Depth Normal 06/25/19 00:31 Respiratory Pattern Normal 06/25/19 00:31 Blood Pressure 104/62 06/25/19 11:28 Pulse Oximetry 98 06/25/19 11:28 Respiratory End-tidal CO2 40 06/24/19 16:55 Oxygen Delivery Method Room Air 06/25/19 11:28 Oxygen Flow Rate 0 06/25/19 11:28 Pain Level 3 06/25/19 11:28 Intake & Output 06/24/19 06/25/19 06/25/19 23:59 11:59 23:59 Intake Total 1665.334 / 4904.096 0391.417 / 1515.417 240 / 1515.417 Output Total 600 / 600 900 / 900 Balance 1065.334 / 1065.334 375.417 / 615.417 240 / 615.417 Intake: IV 1575.334 / 9191.082 3203.417 / 1035.417 Oral 90 / 90 240 / 480 240 / 480 Output: Urine 900 / 900 Estimated Blood Loss 600 / 600 Other: Urine Color Yellow Yellow Urine Appearance Clear Clear Urine Odor Strong Emesis Description None Voiding Methods Bedpan Laboratory Results WBC 26.15 k/cumm (4.4-10.8) H* 06/25/19 06:15 RBC 3.38 m/cumm (4.00-5.20) L 06/25/19 06:15 Hgb 10.2 g/dL (12.0-15.5) L 06/25/19 06:15 Hct 32.5 % (36.0-46.0) L 06/25/19 06:15 MCV 96.2 fL (80-95) H 06/25/19 06:15 MCH 30.2 pg (27.0-33.0) 06/25/19 06:15 MCHC 31.4 g/dL (32.0-36.0) L 06/25/19 06:15 RDW 15.3 % (11.7-14.6) H 06/25/19 06:15 Plt Count 461 x1000/uL (130-400) H 06/25/19 06:15 MPV 9.2 fL (8.0-11.0) 06/25/19 06:15
--- NOTE | 2019-06-25 13:41 | PDOC.CMIN ---
- If Service Date Differs Date of service: 06/25/19 Time of Service: 11:00 Care Management Initial Assess REASON FOR HOSPITALIZATION:: Post-Op R Tibial osteotomy and P-F Joint Replacement PAST MEDICAL HISTORY/PAST SURGICAL HISTORY:: GERD, Chest Pain, Obesity, Polyarteritis nodosa, throbocythemia, bascultitis, appendetomy, endometrial ablation, hx of biopsy PREVIOUS FUNCTIONAL STATUS/SOCIAL/FAMILY SUPPORTS:: Yvonne resides in [place] with her , Juan and their sixteen year old son. Juan is disabled from a car accident many years ago, so he is home and will be providing Yvonne with post-op support. 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 She is independent at baseline in the community. CURRENT FUNCTIONAL STATUS:: Due to post operative pain, Yvonne reports being limited with mobility, and did not want to get up to the bathroom. She continues to mobilize with PT, and austin remains in place with plan to remove it tomorrow, per MD. Per MD, Yvonne will discharge home when she is independent with transfers and ambulation to the bathroom and back and only taking PO pain meds. ADVANCE DIRECTIVES:: Document provided. Has patient been provided with information about the portal?: Yes Did the patient sign up for the portal?: No CODE STATUS:: Full Code INSURANCE COVERAGE / FINANCIAL ISSUES:: BC/BS CURRENT HOME/COMMUNITY SERVICES/EQUIPMENT:: Crutches, FWW, raised toilet seat, shower chair. PRIMARY CARE PHYSICIAN:: Denise Wheeler POTENTIAL DISCHARGE NEEDS:: PT evaluation and transfer training. Follow up appointments. PATIENT/FAMILY EDUCATION NEEDS:: Review discharge instructions, discuss Ask Me Three. ANTICIPATED BARRIERS TO DISCHARGE:: None identified at this time. TRANSPORTATION:: Via private vehicle with family. PLAN:: Yvonne will return home when ready per MD. No additional services anticipated at this time. CM will continue to follow.
[2019-06-25] MEDS: HYDROcodone 5/Acetaminophen 325 TAB PO (14:02)
--- NOTE | 2019-06-25 14:19 | CHAPLAIN ---
Yvonne was resting in bed when I visited. She told me about her surgery. 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 Yvonne said her mom will be coming in to visit later. She is relieved to have her surgery done as her knee was very painful before and she said now she knows this recovery pain won't last and that's much better than the pain she was dealing with.
--- NOTE | 2019-06-25 14:24 | CHAPLAIN ---
Yvonne is a member of the [employer] in [place] and they know that she is here.
[2019-06-25 15:10] VITALS: BP 115/69; PULSE 64; RESP 17; TEMP 36.9; O2SAT 97
[2019-06-25] MEDS: NIFEdipine-CR 30 MG TABCR 60 MG PO (19:34)
[2019-06-25 19:46] VITALS: BP 104/67; PULSE 93; RESP 19; TEMP 37.1; O2SAT 95
[2019-06-25] MEDS: Cholecalciferol (Vitamin D3) 1,000 UNIT TAB 4000 UNITS PO (22:25)
[2019-06-25] MEDS: Folic Acid 1 MG TAB 2 MG PO (22:26)
--- NOTE | 2019-06-25 23:48 | NUR.NOTE ---
Nursing Note: Pt was crying when repositioned on bed, Since 1500 hrs., she refused to be moved, 4 staff assisted on repositioning at 2300 hrs., pain med offered but does not want to take any., staff able to put her on her left semi side lying supported by pillows but tolerated for 20 mins only, and put back to her back lying position as requested.+ Toradol scheduled at midnight given and with good relief. Pt verbalized of being comfortable now with her position and refused to be touched again.
[2019-06-26] VITALS (7 sets, daily range): BP systolic 112–147; BP diastolic 69–86; PULSE 76–98; RESP 14–22; TEMP 36.1–37.1; O2SAT 95–98
[2019-06-26] MEDS: Normal Saline Flush 10 ML SYR IV ×3 (06:32→23:36)
[2019-06-26] MEDS: Ketorolac 30 MG/ML VIAL IVP ×4 (06:33→23:35)
[2019-06-26 06:58] LABS: HCT 28.8 % (36.0-46.0); Mean Corp. HGB Concentration 31.3 g/dL (32.0-36.0); Mean Corpuscular Hemoglobin 30.3 pg (27.0-33.0); Mean Platelet Volume 9.2 fL (8.0-11.0); Platelet Count 335 x1000/uL (130-400); RBC 2.97 m/cumm (4.00-5.20); RBC Distribution Width 15.5 % (11.7-14.6); White Blood Cell Count 14.89 k/cumm (4.4-10.8)
[2019-06-26] MEDS: Furosemide 40 MG TAB PO (08:12)
[2019-06-26] MEDS: oxyCODONE-CR 10 MG TABCR PO ×2 (08:12→19:52)
[2019-06-26] MEDS: Multivitamin w/Minerals TAB 1 TAB PO (08:12)
[2019-06-26] MEDS: Calcium 600mg/Vit D 200U TAB 3 TAB PO (08:12)
[2019-06-26] MEDS: predniSONE 5 MG TAB PO (08:12)
[2019-06-26] MEDS: Pantoprazole 40 MG TABCR PO (08:12)
[2019-06-26] MEDS: Aspirin 81 MG CHEW PO (08:12)
[2019-06-26] MEDS: Docusate Sodium 100 MG CAP PO ×3 (08:12→19:52)
--- NOTE | 2019-06-26 13:36 | PT.INTREAT ---
PT Notes Visit Reasons: POST-OP R TIBIAL OSTEOTOMY & P-F JOINT REPLACEMENT Inpatient Physical Therapy Treatment Note [facility] Date: 06/26/2019 SUBJECTIVE: Darling states that she is really anxious about getting around as her left knee is apt to dislocate. She reports no pain lying in bed. OBJECTIVE: [] BED MOBILITY/TRANSFERS Supine-sit: CGA/min assist with LE Sit-stand: mod assist of one in am, and min assist of 1 pm Stand-sit: min assist with R LE GAIT Assistive Device: FWW Weight bearing: NWB R Assist: mod A x1 in am and min A x1 in pm Distance: 4' in am, 3' in pm Deviation: NWB cues THEREX: LE strength and stabilization, see flowsheet for details. ASSESSMENT: tolerated session well, despite anxiety. Needs continued cues for proper gait mechanics being NWB especially going bkwds as she admittedly puts weight through her LE. She is anxious. PLAN: continue following per PT POC. TREATMENT CODE/TIME: 25 min in am [id number], [id number] 25 min in pm [id number].
[2019-06-26] MEDS: HYDROcodone 5/Acetaminophen 325 TAB PO (14:21)
--- NOTE | 2019-06-26 14:33 | CMPROGNOTE_ITS ---
- If Service Date Differs Date of service: 06/26/19 Time of Service: 14:33 Care Management Progress Note S/O: Yvonne was sitting up in her chair when CM met with her. She reported that she had a difficult day yesterday, as she was in a lot of pain. She is also suffering with some anxiety and depression, which she reported has been just since [place], when she originally injured her knee. She stated that she has other health issues which she expects will effect her healing/recovery from s urgery. She reported that she is having a better day today, and that she worked well with PT. Per MD, she is non weight bearing on the leg that was operated on, so she may need additional support, and will need to learn to transfer independently prior to returning home. Yvonne stated that her had a heart attack last week, so she is anxious to leave too soon. CM will continue to follow. A: Yvonne is a 44 year old female admitted to [facility] on 06/24/19 for a R partial Knee Replacement. P: Anticipate Yvonne will return home when cleared by PT and MD. She may need HH PT/OT, which CM will coordinate, if indicated. She will follow up with her PCP and Ortho, as recommended. She will be driven home by family via private vehicle. CM will continue to follow and support discharge planning considerations.
--- NOTE | 2019-06-26 16:06 | W.PM.PROGNOT ---
Date of Service Date of service: 06/26/19 Time of Service: 16:06 Assessment and Plan Assessment and plan (1) Status post right partial knee replacement: Status: Acute Assessment and plan: Assessment: Doing well at 48 hours postop. Due to the fact that she has to be nonweightbearing and her BMI of 51 mobilization is expected to be slow. So far her pain continues to decrease. Plan: Continue to work with PT to achieve independence with transfers and walking short distances. We will plan to take down the dressings to the right knee tomorrow. I think she will probably achieve enough independence to go home by Monday the latest. Continue emphasize nonweightbearing at this time. (2) Dislocation of right patella: Status: Acute Assessment and plan: Assessment: Same as above. Plan: Continue to mobilize with PT until she achieves enough independence to safely go home. Continue emphasize being nonweightbearing to prevent overstressing the Lencho tibial tubercle osteotomy. Subjective Subjective Patient reports: feels better and still having pain Exam Narrative Exam Narrative: She remains afebrile, vital signs are stable. Hemoglobin this morning was 9.0 g. She has been able to urinate since the Larios was DC'd. He still requires assistance to transfer. She has good active ankle and toe motion. She has good sensation and circulation to her right foot. Objective Objective Clinical Data: Abnormal lab results 06/26/19 Range/Units 06:38 WBC 14.89 H D (4.4-10.8) k/cumm RBC 2.97 L (4.00-5.20) m/cumm Hgb 9.0 L (12.0-15.5) g/dL Hct 28.8 L (36.0-46.0) % MCV 97.0 H (80-95) fL MCHC 31.3 L (32.0-36.0) g/dL RDW 15.5 H (11.7-14.6) % Vital Signs Temperature 36.8 C 06/26/19 16:00 Temperature Source Tympanic 06/26/19 16:00 Pulse 98 H 06/26/19 16:00 Pulse Rhythm Regular 06/26/19 09:55 Respiratory Rate 18 06/26/19 16:00 Respiratory Effort Non-Labored 06/26/19 09:55 Respiratory Depth Normal 03/18/20 09:55 Respiratory Pattern Normal 06/26/19 09:55 Blood Pressure 121/79 06/26/19 16:00 Pulse Oximetry 97 06/26/19 16:00 Respiratory End-tidal CO2 40 06/24/19 16:55 Oxygen Delivery Method Room Air 06/26/19 16:00 Oxygen Flow Rate 0 06/26/19 16:00 Pain Level 0 06/26/19 16:00 Intake & Output 06/25/19 06/26/19 06/26/19 23:59 11:59 23:59 Intake Total 530 / 3038.258 8214 / 1850 250 / 1850 Output Total 900 / 1800 1500 / 2025 525 / 2025 Balance -370 / 5.417 100 / -175 -275 / -175 Intake: IV 50 / 7739.731 9576 / 1050 Oral 480 / 720 550 / 800 250 / 800 Output: Urine 900 / 1800 1500 / 5 525 / 5 Other: Urine Color Yellow Yellow Yellow Urine Appearance Clear Clear Clear Urine Odor Normal Voiding Methods Bedside Commode Laboratory Results WBC 14.89 k/cumm (4.4-10.8) H D 06/26/19 06:38 RBC 2.97 m/cumm (4.00-5.20) L 06/26/19 06:38 Hgb 9.0 g/dL (12.0-15.5) L 06/26/19 06:38 Hct 28.8 % (36.0-46.0) L 06/26/19 06:38 MCV 97.0 fL (80-95) H 06/26/19 06:38 MCH 30.3 pg (27.0-33.0) 06/26/19 06:38 MCHC 31.3 g/dL (32.0-36.0) L 06/26/19 06:38 RDW 15.5 % (11.7-14.6) H 06/26/19 06:38 Plt Count 335 x1000/uL (130-400) D 06/26/19 06:38 MPV 9.2 fL (8.0-11.0) 06/26/19 06:38
[2019-06-26] MEDS: NIFEdipine-CR 30 MG TABCR 60 MG PO (19:52)
[2019-06-26] MEDS: Folic Acid 1 MG TAB 2 MG PO (21:42)
[2019-06-26] MEDS: Cholecalciferol (Vitamin D3) 1,000 UNIT TAB 4000 UNITS PO (21:42)
[2019-06-27] VITALS (7 sets, daily range): BP systolic 99–164; BP diastolic 66–80; PULSE 73–90; RESP 16–21; TEMP 36.6–37; O2SAT 95–98
[2019-06-27] MEDS: Ketorolac 30 MG/ML VIAL IVP ×2 (05:50→12:37)
[2019-06-27] MEDS: predniSONE 5 MG TAB PO (08:11)
[2019-06-27] MEDS: Calcium 600mg/Vit D 200U TAB 3 TAB PO (08:11)
[2019-06-27] MEDS: Aspirin 81 MG CHEW PO (08:11)
[2019-06-27] MEDS: Multivitamin w/Minerals TAB 1 TAB PO (08:11)
[2019-06-27] MEDS: Docusate Sodium 100 MG CAP PO ×3 (08:11→20:09)
[2019-06-27] MEDS: oxyCODONE-CR 10 MG TABCR PO ×2 (08:11→20:09)
[2019-06-27] MEDS: Pantoprazole 40 MG TABCR PO (08:11)
[2019-06-27] MEDS: Furosemide 40 MG TAB PO (08:12)
--- NOTE | 2019-06-27 09:15 | PTTR_ITS ---
PT Notes Visit Reasons: POST-OP R TIBIAL OSTEOTOMY & P-F JOINT REPLACEMENT Inpatient Physical Therapy Treatment Note [facility] Date: 06/27/2019 SUBJECTIVE: Darling rates her pain as 3/10. She states that her non-operative leg is extremely weak and she does not have the endurance to walk without putting weight on her right leg. She has concerns about getting up the 3 stairs into her home. She has a contractor coming up within the next few days to look into p utting up a ramp. OBJECTIVE: BED MOBILITY/TRANSFERS Sit-stand: min assist of one, from recliner with leg sheet metal engineer to lower leg to floor Stand-sit: min assist to R LE GAIT Assistive Device: FWW Weight bearing: NWB R, which is poorly maintained despite cues. Patient demonstrates approx 25-50% weightbearing on the RLE. Ambulates with knee immobilizer to RLE Assist: min A x1 Distance: 10' with max cues and encouragement Deviation: Patient struggles to tolerate 10' distance, and demonstrates poor safety awareness as she fatigues. She requires increased cues for safety and equipment management. STAIRS: unable to attempt stairs due to inability to single leg stand on the LLE. THEREX: LE strength as noted on flowsheet. Progressed SLR of non-operative leg to 10 second holds, which patient tolerates to only 7 reps due to fatigue. She is unable to lift left leg for additional reps. She was instructed in chair pushups for UE strengthening, which she also demonstrates significant fatigue with. Introduced sub-max quad sets on operative side, with significant a pprehension and no pain. ASSESSMENT: tolerated session well, despite anxiety. Needs continued cues for proper gait mechanics being NWB especially going bkwds as she admittedly puts weight through her LE. She demonstrates severe deconditioning; she ambulates 10' with min A only, although requires encouragement throughout to continue, and has reduced safety with distance, increasing her risk for falls. Her home requires her to manage 3 steps to enter, and to be able to walk about 30' to get to the bathroom. She does not demonstrate the strength or endurance to achieve either of these tasks at this time. PLAN: Added HEP for LLE and bilat UE strengthening between PT sessions. Requires commode for home use due to inability to ambulate sufficient distance to bathroom and reduce fall risk upon transition back home. TREATMENT CODE/TIME: 50 minutes ([id number], [id number]) Lianne Hamilton, PT, DPT [facility]
[2019-06-27] MEDS: HYDROcodone 5/Acetaminophen 325 TAB PO (09:56)
--- NOTE | 2019-06-27 11:40 | W.PM.PROGNOT ---
Date of Service Date of service: 06/27/19 Time of Service: 11:40 Assessment and Plan Assessment and plan (1) Dislocation of right patella: Status: Acute Assessment and plan: Assessment: She is progressing well. Main problem is with getting up from the bed to standing up from a chair to standing. She is ambulating enough to go home. She has a few stairs to go up at home. She has a contracted putting in a ramp to eliminate that problem. She has a power recliner that gets her from sitting to standing. Plan: DC her IV after last Toradol dose later today. DC home when she can transfer on her own. (2) Status post right partial knee replacement: Status: Acute Assessment and plan: Assessment: Same as for above. Plan: Same as above. Subjective Subjective Interval history since last seen: Feeling a little better every day. Pain is well controlled. The difficulty she has is getting in and out of the bed. She has urinated since her Larios was DC'd. Exam Narrative Exam Narrative: She continues afebrile vital signs are stable. I take down her dressings down to the negative pressure dressing. The knee looks beautiful. There is no erythema no swelling. She is able to walk from the bed to the doorway today. Difficulty she has is transferring from the bed to standing. She requires assistance of 2. Objective Objective Clinical Data: Vital Signs Temperature 36.6 C 06/27/19 11:28 Temperature Source Temporal Artery Scan 06/27/19 11:28 Pulse 90 06/27/19 11:28 Pulse Rhythm Regular 06/27/19 08:59 Respiratory Rate 18 06/27/19 11:28 Respiratory Effort Non-Labored 06/27/19 08:59 Respiratory Depth Normal 06/27/19 08:59 Respiratory Pattern Normal 06/27/19 08:59 Blood Pressure 114/71 06/27/19 11:28 Pulse Oximetry 95 06/27/19 11:28 Respiratory End-tidal CO2 40 06/24/19 16:55 Oxygen Delivery Method Room Air 06/27/19 11:28 Oxygen Flow Rate 0 06/27/19 11:28 Pain Level 3 06/27/19 11:28 Intake & Output 06/26/19 06/26/19 06/27/19 11:59 23:59 11:59 Intake Total 1600 / 3330 1730 / 3330 370 / 370 Output Total 1500 / 2725 1225 / 2725 1000 / 1000 Balance 100 / 605 505 / 605 -630 / -630 Intake: IV 1050 / 0 999 / 2049 Oral 550 / 1280 730 / 1280 370 / 370 Output: Urine 1500 / 2725 1225 / 2725 1000 / 1000 Other: Urine Color Yellow Yellow Yellow Urine Appearance Clear Clear Clear Urine Odor Normal None Voiding Methods Bedside Commode Bedside Commode Laboratory Results WBC 14.89 k/cumm (4.4-10.8) H D 06/26/19 06:38 RBC 2.97 m/cumm (4.00-5.20) L 06/26/19 06:38 Hgb 9.0 g/dL (12.0-15.5) L 06/26/19 06:38 Hct 28.8 % (36.0-46.0) L 06/26/19 06:38 MCV 97.0 fL (80-95) H 06/26/19 06:38 MCH 30.3 pg (27.0-33.0) 06/26/19 06:38 MCHC 31.3 g/dL (32.0-36.0) L 06/26/19 06:38 RDW 15.5 % (11.7-14.6) H 06/26/19 06:38 Plt Count 335 x1000/uL (130-400) D 06/26/19 06:38 MPV 9.2 fL (8.0-11.0) 06/26/19 06:38
[2019-06-27] MEDS: Normal Saline Flush 10 ML SYR IV (12:37)
--- NOTE | 2019-06-27 17:41 | CMPROGNOTE_ITS ---
- If Service Date Differs Date of service: 06/27/19 Time of Service: 17:41 Care Management Progress Note S/O: Yvonne was sitting up in bed when CM met with her. She reported that she met with Dr. Lugo today who stated that he would reevaluate her daily to see if she is ready for discharge. She stated that she does not feel ready today. Her is building her a ramp for the two stairs in her home. She requested a wheel chair, which CM will inquire about, although it may not be covered by her insurance. She stated that she worked well with PT today, and she is making progress. CM called [facility] to inform them that she will be discharging soon, within the next few days. [facility]E reported that they sometimes let their patients borrow wheelchairs, and they would look into this and call CM tomorrow with availability. JOHN also contacted some local [employer] and found that the [place] location does have wheelchairs available to borrow. CM passed this information to Darling, who will ask her to coordinate picking one up. CM will continue to follow. A: Yvonne is a 44 year old female admitted to [facility] on 06/24/19 for a R partial Knee Replacement. P: Anticipate Yvonne will return home when cleared by PT and MD. She may need HH PT/OT, which CM will coordinate, if indicated. She will follow up with her PCP and Ortho, as recommended. She will be driven home by family via private vehicle. CM will continue to follow and support discharge planning considerations.
[2019-06-27] MEDS: NIFEdipine-CR 30 MG TABCR 60 MG PO (20:09)
[2019-06-27] MEDS: Folic Acid 1 MG TAB 2 MG PO (21:39)
[2019-06-27] MEDS: Cholecalciferol (Vitamin D3) 1,000 UNIT TAB 4000 UNITS PO (21:39)
[2019-06-28 06:23] VITALS: BP 136/85; PULSE 85; RESP 18; TEMP 36.7; O2SAT 97
[2019-06-28] MEDS: oxyCODONE-CR 10 MG TABCR PO ×2 (07:03→19:40)
[2019-06-28] MEDS: Pantoprazole 40 MG TABCR PO (07:03)
[2019-06-28] MEDS: HYDROcodone 5/Acetaminophen 325 TAB PO (08:14)
[2019-06-28] MEDS: Furosemide 40 MG TAB PO (08:15)
[2019-06-28] MEDS: Calcium 600mg/Vit D 200U TAB 3 TAB PO (08:15)
[2019-06-28] MEDS: Multivitamin w/Minerals TAB 1 TAB PO (08:15)
[2019-06-28] MEDS: predniSONE 5 MG TAB PO (08:15)
[2019-06-28] MEDS: Celecoxib 200 MG CAP PO ×2 (08:15→19:40)
[2019-06-28] MEDS: Docusate Sodium 100 MG CAP PO ×3 (08:15→19:40)
[2019-06-28] MEDS: Aspirin 81 MG CHEW PO (08:15)
--- NOTE | 2019-06-28 12:04 | PTTR_ITS ---
PT Notes Visit Reasons: POST-OP R TIBIAL OSTEOTOMY & P-F JOINT REPLACEMENT Inpatient Physical Therapy Treatment Note [facility] Date: 06/28/2019 SUBJECTIVE: Darling states that she had a difficult night, but is feeling good, and ready to walk. She feels that she is doing better with her weightbearing, although admits that she cannot maintain fully nonweightbearing status. She states that she had a difficult transfer this morning. She does have a contractor at her home currently, working on getting a ramp installed. She also has both her father and care management working on getting a wheelchair. OBJECTIVE: BED MOBILITY/TRANSFERS Sit-stand: Supervision Stand-sit: Supervision Bed?chair: FW W with supervision and max cues for nonweightbearing right lower extremity, which is poorly maintained GAIT Assistive Device: FWW Weight bearing: NWB R, which is poorly maintained despite cues. Patient demo nstrates approx 25-50% weightbearing on the RLE. Ambulates with knee immobilizer to RLE Assist: Supervision Distance: 4' x 2 with max cues and encouragement Deviation: Patient required max cues and visual feedback for gait mechanics and right lower extremity positioning to reduce weightbearing. She is initially able to maintain right lower extremity and slight hip flexion with just heel pressure to the floor, although with only a couple of steps transitions back to flatfoot with increasing weightbearing. Patient also continues to demonstrate significant anxiety with turning. She requires max cues for effective completion of transfers, particularly to avoid attempting to sit prior to safe positioning. STAIRS: unable to attempt stairs due to inability to single leg stand on the LLE. THEREX: Strengthening as noted on flowsheet. Patient was provided with a yellow Thera-Band and instructed in a progressed upper extremity strengthening program for completion between PT sessions. Added bicep and tricep strengthening, and encouraged positional changes for reduction of back pain. She is able to complete SLR for 10 x 10 seconds on her nonoperative side today, with improved endurance versus yesterday. ASSESSMENT: Improved mobility today, although with continued difficulty maintaining NWB on the RLE. We will continue working on strategies to reduce weightbearing and improved tolerance to short distance ambulation and transfers. PLAN: We will continue progressing as above. TREATMENT CODE/TIME: 50 minutes ([id number], [id number]) Lianne Hamilton, PT, DPT [facility]
[2019-06-28] MEDS: Acetaminophen 325 MG TAB 650 MG PO (13:17)
--- NOTE | 2019-06-28 13:59 | CMPROGNOTE_ITS ---
- If Service Date Differs Date of service: 06/28/19 Time of Service: 14:00 Care Management Progress Note S/O: Yvonne was sitting up in her chair when CM met with her. She stated that she was in a lot of pain overnight and didn't sleep well. She reported that her has a contractor at the house today installing a ramp. Her father did secure a wheelchair, but it is too small for her. She doesn't feel comfortable returning home until she has a wheelchair and the ramp installed. CM discussed this with Dr. Lugo, who stated that he will be ready to discharge her when she has everything in place and is comfortable going home. CM called [facility], who reported that they have a bariatric w/c that Darling can borrow currently, and it can be picked up today. CM discussed this with Darling, who stated that her will pick it up today. CM will check on the ramp progress, and as long as it is finished, Darling will be ready to be discharged tomorrow. CM will continue to follow. A: Yvonne is a 44 year old female admitted to [facility] on 06/24/19 for a R partial Knee Replacement. P: Anticipate Yvonne will return home when cleared by PT and MD. She may need HH PT/OT, which CM will coordinate, if indicated. She will follow up with her PCP and Ortho, as recommended. She will be driven home by family via private vehicle. CM will continue to follow and support discharge planning considerations.
--- NOTE | 2019-06-28 15:43 | CHAPLAIN ---
I checked in with Yvonne this morning. She said she didn't sleep well last night and her pain has increased some.. She is waiting for a ramp to be built at her house, and to locate a wheelchair before going home, she told me. She is a member of the [employer] and they know she is here. Family members have been visiting, but won't be able to now due to new hospital rules. Yvonne said is comfortable about not having visitors.
[2019-06-28 15:45] VITALS: BP 121/68; PULSE 85; RESP 18; TEMP 36.9; O2SAT 99
--- NOTE | 2019-06-28 15:49 | W.PM.PROGNOT ---
Date of Service Date of service: 06/28/19 Time of Service: 10:49 Assessment and Plan Assessment and plan (1) Status post right partial knee replacement: Status: Acute Assessment and plan: Assessment: She is making slow but steady progress in her mobility. Until she can get able to transfer independently, she needs to continue work with PT. A ramp is being built so she does not have to do stairs at home. The most she is walking is 10 feet, but that should be sufficient for her at home. Plan: Continue to work with PT to improve her ability to transfer. When she can transfer independently she can be discharged home. They are working on a wheelchair for her at home so that she will not bear weight on her right leg. Once again emphasized with her the need to be nonweightbearing on the right leg is much as possible. (2) Dislocation of right patella: Status: Acute Assessment and plan: Assessment: Same as above for partial knee replacement. Plan: Same as above for partial knee replacement. Subjective Subjective Interval history since last seen: She feels like she is getting stronger. She is able to transfer with the help of 1. She had more pain last night after the Toradol and did but is feeling a little better today. Exam Narrative Exam Narrative: Continues afebrile,vital signs stable. The therapist tells me that she is putting considerably more weight on her left leg than I would like. She thinks she may be even putting 50% of her weight on her right leg. No sign that she is disrupted her osteotomy today on exam. There is no unusual swelling about the knee. Neurovascular examination the right foot is normal. Still needs considerable help to transfer although less than yesterday. Objective Objective Clinical Data: Vital Signs Temperature 36.7 C 06/28/19 06:23 Temperature Source Tympanic 06/28/19 06:23 Pulse 85 06/28/19 06:23 Pulse Rhythm Regular 06/28/19 10:14 Respiratory Rate 18 06/28/19 06:23 Respiratory Effort Non-Labored 06/28/19 10:14 Respiratory Depth Normal 06/28/19 10:14 Respiratory Pattern Normal 06/28/19 10:14 Blood Pressure 136/85 06/28/19 06:23 Pulse Oximetry 97 06/28/19 06:23 Respiratory End-tidal CO2 40 06/24/19 16:55 Oxygen Delivery Method Room Air 06/28/19 06:23 Oxygen Flow Rate 0 06/28/19 06:23 Pain Level 3 06/28/19 13:17 Intake & Output 06/27/19 06/28/19 06/28/19 23:59 11:59 23:59 Intake Total 850 / 1220 400 / 640 240 / 640 Output Total 1350 / 2350 1100 / 1700 600 / 1700 Balance -500 / -1130 -700 / -1060 -360 / -1060 Intake: Oral 850 / 1220 400 / 640 240 / 640 Output: Urine 1350 / 2350 1100 / 1700 600 / 1700 Other: Urine Color Yellow Yellow Pale Yellow Urine Appearance Clear Clear Clear Urine Odor None None None Stool Size Large Stool Characteristics Formed Voiding Methods Bedside Commode Bedside Commode Bedside Commode Laboratory Results WBC 14.89 k/cumm (4.4-10.8) H D 06/26/19 06:38 RBC 2.97 m/cumm (4.00-5.20) L 06/26/19 06:38 Hgb 9.0 g/dL (12.0-15.5) L 06/26/19 06:38 Hct 28.8 % (36.0-46.0) L 06/26/19 06:38 MCV 97.0 fL (80-95) H 06/26/19 06:38 MCH 30.3 pg (27.0-33.0) 06/26/19 06:38 MCHC 31.3 g/dL (32.0-36.0) L 06/26/19 06:38 RDW 15.5 % (11.7-14.6) H 06/26/19 06:38 Plt Count 335 x1000/uL (130-400) D 06/26/19 06:38 MPV 9.2 fL (8.0-11.0) 06/26/19 06:38
[2019-06-28 19:15] VITALS: BP 121/68; PULSE 80; RESP 18; TEMP 36.6; O2SAT 97
[2019-06-28] MEDS: Cholecalciferol (Vitamin D3) 1,000 UNIT TAB 4000 UNITS PO (19:40)
[2019-06-28] MEDS: NIFEdipine-CR 30 MG TABCR 60 MG PO (19:41)
[2019-06-28] MEDS: Folic Acid 1 MG TAB 2 MG PO (19:41)
[2019-06-29] VITALS (7 sets, daily range): BP systolic 120–140; BP diastolic 68–83; PULSE 74–100; RESP 16–20; TEMP 35.6–37.4; O2SAT 94–97
--- NOTE | 2019-06-29 07:54 | CMDISCH_ITS ---
LACE Index Scoring Tool - Questions: Length of Stay (in days): 4 - 6 Acuity (Admit via E.D.?): No E.D. Visits: 2 - Answers: Total Score: 6 Risk of Readmission: Low Risk Care Management Discharge Reason for Hospitalization: Post-Op R Tibial osteotomy and P-F Joint Replacement Discharge Plan: Yvonne will return home when ready per MD. She will have new orders for VNA PT/OT through [facility], who are also providing her a bariaric W/C during recovery. Ramp installed at her home as well. Yvonne will follow up with her PCP and Ortho, as recommended. She will be driven home by family via private vehicle. Patient/Family Education Needs: Review discharge instructions, discuss Ask Me Three. Services Needed at Discharge: DME Agency (Bariatric W/C- O/E [facility]), Home Health Care Services ([facility]; PT/OT)
[2019-06-29] MEDS: oxyCODONE-CR 10 MG TABCR PO ×2 (07:59→20:16)
[2019-06-29] MEDS: Pantoprazole 40 MG TABCR PO (08:00)
[2019-06-29] MEDS: Aspirin 81 MG CHEW PO (09:01)
[2019-06-29] MEDS: predniSONE 5 MG TAB PO (09:01)
[2019-06-29] MEDS: Celecoxib 200 MG CAP PO ×2 (09:01→20:16)
[2019-06-29] MEDS: Furosemide 40 MG TAB PO (09:02)
[2019-06-29] MEDS: Calcium 600mg/Vit D 200U TAB 3 TAB PO (09:02)
[2019-06-29] MEDS: Multivitamin w/Minerals TAB 1 TAB PO (09:02)
[2019-06-29] MEDS: Docusate Sodium 100 MG CAP PO ×3 (09:04→20:16)
--- NOTE | 2019-06-29 10:26 | PT.INDS ---
PT Notes Visit Reasons: POST-OP R TIBIAL OSTEOTOMY & P-F JOINT REPLACEMENT Date: June 29, 2019 Treatment Dates: 06/25/2019 - 06/29/2019 Referring Doctor: Sidney Lugo MD PT Orders: PT CONSULT: S/P Ortho surgery Precautions: Fall. Standard. Per verbal order as of 10:00 this morning, patient is NWB on right LE. Patient Profile/Admitting Diagnosis: Patient is a 44-year-old female with recurrent patellar dislocation and osteoarthritis of right knee status post Lencho procedure and patellofemoral joint replacement. Subjective: Patient states that her ramp has been installed and her and son have been practicing managing a w/c up and down. They have acquired a bariatric w/c and have confirmed that they can get it through the necessary doorways. Objective: General Observation: Patient on commode at initiation of session. No lines. Knee immobilizer on right LE. Mental Status: Alert and oriented x4 ROM: Right Upper Extremity: Shoulder Flexion WFL. Shoulder abduction WFL. Elbow flexion WFL. Wrist flexion WFL. Opening and closing of hand WFL. Left Upper Extremity: Shoulder Flexion WFL. Shoulder abduction WFL. Elbow flexion WFL. Wrist flexion WFL. Opening and closing of hand WFL. Right Lower Extremity: Hip flexion NT. Hip abduction NT. Knee flexion NT. Ankle dorsiflexion WFL. Ankle plantarflexion WFL. Left Lower Extremity: Hip flexion allows up to 20 degrees of hip flexion beyond 90 while seated at edge of bed. Hip abduction WFL. Knee flexion WFL. Ankle dorsiflexion WFL. Ankle plantarflexion WFL. Strength: Right Upper Extremity: Shoulder flexors 4/5. Shoulder abductors 4/5. Elbow flexors 4/5. Elbow extensors 4-/5. Advanced Manufacturing Engineer strong. Left Upper Extremity: Shoulder flexors 4/5. Shoulder abductors 4/5. Elbow flexors 4/5. Elbow extensors 4-/5. Advanced Manufacturing Engineer strong. Right Lower Extremity: Hip flexors 3-/5 grossly. Hip abductors 3-/5 grossly. Knee flexors NT. Knee extensors NT. Ankle dorsiflexors 3/5. Ankle plantarflexors 4/5. Left Lower Extremity: Hip flexors 3-/5. Hip abductors 4/5. Knee flexors 4/5. Knee extensors 4-/5. Ankle dorsiflexors 4/5. Ankle plantarflexors 4/5. Sensation: Intact as to pain and pressure on bilateral lower extremities. Bed Mobility/Transfers: Supine to sit: CGA Sit to supine: CGA Sit to stand: Supervision Stand to sit: Supervision Bed to chair: Supervision with FWW, knee immobilizer Gait: Patient able to safely ambulate 4-6' with supervision, FWW and right knee immobilizer. She continues to struggle to maintain NWB, with approx 25% weight bearing on the RLE during ambulation today. She is able to manage left single leg standing with max UE support to walker x 45 seconds for assisted clean up after toileting. Balance: Static Sitting: Normal Dynamic Sitting: Normal Static Standing: Fair Dynamic Standing: Fair Treatment: Therapeutic Exercise: Assisted with transfer commode to chair, with need for cues regarding weight bearing. We reviewed HEP, and patient was provided with handouts for home completion. Assessment: Patient has participated in 6 PT sessions over the past 5 days, with improvements in safety and mobility. She is now demonstrating safety and independence with transfers sufficient to allow for transition back home, with continued assistance from family. She does have a ramp in place and access to a wheelchair. She requires continue PT intervention via home health services to allow for continued improvements in mobility and progression along her postop protocol. Goals: Goals X1 week 1. Supine-Sit independent (goal eliminated, as patient sleeps in a lift recliner) 2. Sit-Supine independent(goal eliminated, as patient sleeps in a lift recliner) 3. Sit-Stand supervision (met) 4. Stand-Sit supervision (met) 5. Bed-Chair supervision (met) 6. Chair-Bed supervision (met) 7. Supervision gait on level surface with use of least restrictive device for at least 300 feet without report of pain nor dyspnea (not met, with patient able to perform short distance supervised ambulation as needed for transfers at home with use of W/C) 8. Supervision stair negotiation while holding onto bilateral rails for at least 10 steps without report of pain nor dyspnea (goal eliminated, as patient has had a ramp installed) 9. Supervision with home exercise program (met) 10. Good static and dynamic standing balance/tolerance (not met, as patient continues to require upper extremity support to FW W) Plan of Care/Treatment Plan: DC from PT services in acute care setting DISCHARGE RECOMMENDATIONS: Home health PT. Patient has obtained a wheelchair, which she requires for household distance mobility. She has additionally had a ramp installed, eliminating need for stair management. TREATMENT CODE/TIME: 15 minutes ([id number]) Lianne Hamilton, PT, DPT [facility]
[2019-06-29] MEDS: Acetaminophen 325 MG TAB 650 MG PO (11:29)
--- NOTE | 2019-06-29 13:36 | W.PM.PROGNOT ---
Date of Service Date of service: 06/29/19 Time of Service: 13:36 Assessment and Plan Assessment and plan (1) Status post right partial knee replacement: Status: Acute Assessment and plan: Assessment: Improving but still does not dependence with his first. pain is controlled with p.o. pain meds. She can ambulate to the doorway and back which is far enough for her to be at home. Plan: DC home when fully independent i.e. when she transfers without assistance. (2) Dislocation of right patella: Status: Acute Assessment and plan: Assessment: Same as above Plan: Same as above Subjective Subjective Patient reports: no new complaints, feels better and pain is less Exam Narrative Exam Narrative: No swelling of her right lower leg. She has good active motion of her ankle and toes on the right. Normal sensation circulation to the right foot. She remains afebrile, vital signs are stable. Still requires assist of 1 to transfer. Objective Objective Clinical Data: Vital Signs Temperature 37.4 C 06/29/19 11:30 Temperature Source Tympanic 06/29/19 11:30 Pulse 100 H 06/29/19 11:30 Pulse Rhythm Regular 06/29/19 10:52 Respiratory Rate 20 06/29/19 11:30 Respiratory Effort 06/29/19 10:52 Respiratory Depth Normal 06/29/19 10:52 Respiratory Pattern Normal 06/29/19 03:45 Blood Pressure 121/79 06/29/19 11:30 Pulse Oximetry 97 06/29/19 11:30 Respiratory End-tidal CO2 40 06/24/19 16:55 Oxygen Delivery Method Room Air 06/29/19 11:30 Oxygen Flow Rate 0 06/29/19 11:30 Pain Level 3 06/29/19 11:29 Comment 06/28/19 15:45 Intake & Output 06/28/19 06/29/19 06/29/19 23:59 11:59 23:59 Intake Total 480 / 880 Output Total 800 / 1900 400 / 400 Balance -320 / -1020 -400 / -400 Intake: Oral 480 / 880 Output: Urine 800 / 1900 400 / 400 Other: Urine Color Yellow Yellow Urine Appearance Clear Clear Urine Odor Normal None Stool Size Large Large Stool Characteristics Formed Soft Brown Formed Brown Voiding Methods Bedside Commode Bedside Commode Laboratory Results WBC 14.89 k/cumm (4.4-10.8) H D 06/26/19 06:38 RBC 2.97 m/cumm (4.00-5.20) L 06/26/19 06:38 Hgb 9.0 g/dL (12.0-15.5) L 06/26/19 06:38 Hct 28.8 % (36.0-46.0) L 06/26/19 06:38 MCV 97.0 fL (80-95) H 06/26/19 06:38 MCH 30.3 pg (27.0-33.0) 06/26/19 06:38 MCHC 31.3 g/dL (32.0-36.0) L 06/26/19 06:38 RDW 15.5 % (11.7-14.6) H 06/26/19 06:38 Plt Count 335 x1000/uL (130-400) D 06/26/19 06:38 MPV 9.2 fL (8.0-11.0) 06/26/19 06:38
--- NOTE | 2019-06-29 15:02 | PDOC.CMPRO ---
Care Management Progress Note Dr. Lugo did not communicate with CM, RNCC, or PT, but did let the patient know that she would be staying at [facility] at this time. Discharge plan coordinated at this time, no change to overall plan.
--- NOTE | 2019-06-29 16:21 | NUR.NOTE ---
Nursing Note: I reviewed the charting for Carlos Morrow RN, and found it complete and acceptable
[2019-06-29] MEDS: NIFEdipine-CR 30 MG TABCR 60 MG PO (20:16)
[2019-06-29] MEDS: HYDROcodone 5/Acetaminophen 325 TAB PO (22:11)
[2019-06-29] MEDS: Cholecalciferol (Vitamin D3) 1,000 UNIT TAB 4000 UNITS PO (22:12)
[2019-06-29] MEDS: Folic Acid 1 MG TAB 2 MG PO (22:15)
[2019-06-30 03:24] VITALS: BP 125/67; PULSE 77; RESP 17; TEMP 36.8; O2SAT 96
[2019-06-30] MEDS: Acetaminophen 325 MG TAB 650 MG PO ×3 (05:02→21:29)
[2019-06-30 07:45] VITALS: BP 158/93; PULSE 72; RESP 16; TEMP 36.3; O2SAT 94
[2019-06-30] MEDS: oxyCODONE-CR 10 MG TABCR PO ×2 (09:42→21:29)
[2019-06-30] MEDS: Celecoxib 200 MG CAP PO ×2 (09:42→21:29)
[2019-06-30] MEDS: Multivitamin w/Minerals TAB 1 TAB PO (09:42)
[2019-06-30] MEDS: Docusate Sodium 100 MG CAP PO ×2 (09:43→21:29)
[2019-06-30] MEDS: Pantoprazole 40 MG TABCR PO (09:43)
[2019-06-30] MEDS: predniSONE 5 MG TAB PO (09:43)
[2019-06-30] MEDS: Calcium 600mg/Vit D 200U TAB 3 TAB PO (09:43)
[2019-06-30] MEDS: Furosemide 40 MG TAB PO (09:44)
[2019-06-30] MEDS: Aspirin 81 MG CHEW PO (09:44)
[2019-06-30] MEDS: HYDROcodone 5/Acetaminophen 325 TAB PO ×2 (11:48→17:09)
[2019-06-30 12:05] VITALS: BP 135/79; PULSE 78; RESP 20; TEMP 36.7; O2SAT 97
--- NOTE | 2019-06-30 13:42 | W.PM.PROGNOT ---
Date of Service Date of service: 06/30/19 Time of Service: 13:43 Assessment and Plan Assessment and plan (1) Status post right partial knee replacement: Status: Acute Assessment and plan: Assessment: She is almost there with her mobility. She thinks she can go home tomorrow and I think she is right. I once again emphasized with her that she should not put weight on her right leg. She is to use the belt to help lift her right leg in the bed. The negative pressure dressing is leaking. This should be no problem because I am going to unhook it tomorrow before she goes home. Plan: Adjust the knee immobilizer so it is more proximal and does not reach her ankle. This allows better immobilization of the knee and prevents pressure sores around her Achilles. We will plan to unhooked to suction prior to discharge home tomorrow morning. Subjective Subjective Patient reports: no new complaints Exam Narrative Exam Narrative: Still requires assistance lifting her leg as she gets in and out of bed. When she gets her leg on the bed she moves pretty well. She has good active motion of her ankle and toes on the right. Normal sensation circulation to the right foot. She remains afebrile. The negative pressure dressing appears to have an air leak. Objective Objective Clinical Data: Vital Signs Temperature 36.7 C 06/30/19 12:05 Temperature Source Temporal Artery Scan 06/30/19 12:05 Pulse 78 06/30/19 12:05 Pulse Rhythm Regular 06/30/19 02:10 Respiratory Rate 20 06/30/19 12:05 Respiratory Effort 06/30/19 02:10 Respiratory Depth Normal 06/30/19 02:10 Respiratory Pattern Normal 06/29/19 03:45 Blood Pressure 135/79 06/30/19 12:05 Pulse Oximetry 97 06/30/19 12:05 Respiratory End-tidal CO2 40 06/24/19 16:55 Oxygen Delivery Method Room Air 06/30/19 12:05 Oxygen Flow Rate 0 06/30/19 12:05 Pain Level 5 06/30/19 11:48 Comment 06/28/19 15:45 Intake & Output 06/29/19 06/30/19 06/30/19 23:59 11:59 23:59 Intake Total 240 / 240 Output Total 300 / 700 400 / 400 Balance -60 / -460 -400 / -400 Intake: Oral 240 / 240 Output: Urine 300 / 700 400 / 400 Other: Urine Color Yellow Yellow Urine Appearance Clear Clear Urine Odor Normal Normal Comment pt states has gone several times on commode today wm after lasix, up to commode with assist Stool Size Large Stool Characteristics Soft Brown Voiding Methods Bedside Commode Bedside Commode Laboratory Results WBC 14.89 k/cumm (4.4-10.8) H D 06/26/19 06:38 RBC 2.97 m/cumm (4.00-5.20) L 06/26/19 06:38 Hgb 9.0 g/dL (12.0-15.5) L 06/26/19 06:38 Hct 28.8 % (36.0-46.0) L 06/26/19 06:38 MCV 97.0 fL (80-95) H 06/26/19 06:38 MCH 30.3 pg (27.0-33.0) 06/26/19 06:38 MCHC 31.3 g/dL (32.0-36.0) L 06/26/19 06:38 RDW 15.5 % (11.7-14.6) H 06/26/19 06:38 Plt Count 335 x1000/uL (130-400) D 06/26/19 06:38 MPV 9.2 fL (8.0-11.0) 06/26/19 06:38
[2019-06-30 16:05] VITALS: BP 135/82; PULSE 82; RESP 19; TEMP 36.9; O2SAT 97
[2019-06-30 21:26] VITALS: BP 127/78; PULSE 76; RESP 18; TEMP 36.8; O2SAT 96
[2019-06-30] MEDS: NIFEdipine-CR 30 MG TABCR 60 MG PO (21:28)
[2019-06-30] MEDS: Folic Acid 1 MG TAB 2 MG PO (21:28)
[2019-06-30] MEDS: Cholecalciferol (Vitamin D3) 1,000 UNIT TAB 4000 UNITS PO (21:29)
[2019-06-30 23:54] VITALS: BP 130/74; PULSE 74; RESP 18; TEMP 36.6; O2SAT 97
[2019-07-01] MEDS: HYDROcodone 5/Acetaminophen 325 TAB PO ×2 (04:39→11:13)
[2019-07-01 07:40] VITALS: BP 131/83; PULSE 78; RESP 18; TEMP 36.1; O2SAT 95
[2019-07-01] MEDS: Celecoxib 200 MG CAP PO (08:15)
[2019-07-01] MEDS: Multivitamin w/Minerals TAB 1 TAB PO (08:16)
[2019-07-01] MEDS: oxyCODONE-CR 10 MG TABCR PO (08:16)
[2019-07-01] MEDS: predniSONE 5 MG TAB PO (08:16)
[2019-07-01] MEDS: Aspirin 81 MG CHEW PO (08:18)
[2019-07-01] MEDS: Calcium 600mg/Vit D 200U TAB 3 TAB PO (08:28)
--- NOTE | 2019-07-01 10:35 | W.PM.DS.N ---
Date of service: 07/01/19 Time of Service: 10:36 DS: Diagnosis Discharge Diagnosis (1) Status post right partial knee replacement: Status: Acute Discharge Plan Disposition Patient Disposition: HOME Condition: Good Discharge Details Reason For Visit: POST-OP R TIBIAL OSTEOTOMY & P-F JOINT REPLACEMENT Admit Date/Time: 06/24/19 07:06 Admit Provider: Sidney Lugo Attending Provider: Sidney Lugo Primary Care Provider: Denise Wheeler [facility] Course Hospital Course: Patient was taken the operating room on the day of admission 06/24/2019 where she underwent a replacement of the patellofemoral joint along with a Lencho tibial osteotomy on the right. She experienced no Intra-Op complications. Postop she was mobilized by physical therapy non-weightbearing on the right side. She remained afebrile throughout her postoperative course. Hemoglobin stable at 9 g at 48 hours postop. Pain decreased until she was just taking p.o. pain meds. She was able to ambulate from the bed to the door of the room by the fifth postop day. The delay in discharge because of difficulty in being able to transfer from the bed to standing independently. She was able to achieve independent transfers by 07/01/2019. Her negative pressure drain was removed. There was no evidence of any wound problems. There was no erythema no unusual swelling about the knee. No significant drainage had occurred. It was felt she had completed her acute care goals and was ready for home discharge. Home Meds and New Rx's Prescriptions: New celecoxib 200 mg capsule 200 mg PO BID Qty: 30 RF: 0 hydrocodone-acetaminophen 5-325 mg tablet 1 tab PO Q6H PRN (Reason: pain) Qty: 30 RF: 0 tizanidine 4 mg tablet 4 mg PO BID PRNQty: 14 RF: 0 Continued furosemide 20 MG tablet 40 mg PO DAILY Qty: 2 RF: 0 dipyridamole 25 MG tablet 25 mg PO TID RF: 0 cholecalciferol (vitamin D3) [Vitamin D3] 2,000 UNIT capsule 4,000 unit PO HS RF: 0 prednisone 10 MG tablet 5 mg PO DAILY RF: 0 sildenafil [Viagra] 25 MG tablet 20 mg PO TID RF: 0 omeprazole 10 MG capsule,delayed release(DR/EC) 10 mg PO DAILY RF: 0 aspirin [Aspirin Low-Strength] 81 MG tablet,chewable 81 mg PO DAILY RF: 0 folic acid 1 MG tablet 2 mg PO HS RF: 0 calcium carbonate-vitamin D3 1 EACH tablet 3 tab PO DAILY RF: 0 nifedipine 60 mg Tablet Extended Release 60 mg PO DAILY RF: 0 methotrexate (PF) 25 mg/0.5 mL Auto-Injector 25 mg SUBCUT PER PROTOCOL RF: 0 Discharge Instructions Additional Instructions: Elevate R leg when sitting. May shower and get dressing wet. Pat dressing dry after showering. Dressing should be allowed to fall off by itself. If it doesn't, I will take it off in one week. Follow up with Dr. Lugo in one week. Apply cryocuff to R knee 4 times/day for 1 hour each time. DON'T STEP ON R LEG. May rest R foot on floor for balance when standing still.(such as brushing your teeth) Keep knee straight when showering out of knee brace, don't try to bend it. Take tizanidine for muscle spasms, if needed. Take celebrex twice/day as prescribed. Take hydrocodone for breakthru pain, if needed. Stand Alone Forms: Nursing Discharge Form Referrals: Sidney Lugo MD [ [facility] STAFF PHYSICIAN] - (f/u in 1 week) Activity:: Activity as Tolerated Equipment/Supplies:: Walker Diet:: As Tolerated Discharge Orders Discharge Orders: Discharge Order (Routine); Ordered 07/01/19 Ordered By: Sidney Lugo DS: Summary Status at Discharge Functional status at discharge: uses cane/walker Overall status at discharge: patient is progressing back to baseline Mental Status: mental status grossly normal Speech and Movement: speech and movement normal Mood: congruent mood Affect: normal affect Exam Psych Mental Status: mental status grossly normal Speech and Movement: speech and movement normal Mood: congruent mood Affect: normal affect DS: Data Vitals/I&O Vitals and I&O: Vital Signs Temperature 36.1 C L 07/01/19 07:40 Temperature Source Tympanic 07/01/19 07:40 Pulse 78 07/01/19 07:40 Pulse Rhythm Regular 07/01/19 08:50 Respiratory Rate 18 07/01/19 07:40 Respiratory Effort Non-Labored 07/01/19 08:50 Respiratory Depth Normal 07/01/19 08:50 Respiratory Pattern Normal 07/01/19 08:50 Blood Pressure 131/83 07/01/19 07:40 Pulse Oximetry 95 07/01/19 07:40 Respiratory End-tidal CO2 40 06/24/19 16:55 Oxygen Delivery Method Room Air 07/01/19 07:40 Oxygen Flow Rate 0 07/01/19 07:40 Pain Level 3 07/01/19 08:16 Comment 06/28/19 15:45 Intake & Output 06/30/19 06/30/19 07/01/19 11:59 23:59 11:59 Intake Total 240 / 240 360 / 360 Output Total 400 / 1000 600 / 1000 400 / 400 Balance -400 / -760 -360 / -760 -40 / -40 Intake: Oral 240 / 240 360 / 360 Output: Urine 400 / 1000 600 / 1000 400 / 400 Other: Urine Color Yellow Yellow Light Destiny Urine Appearance Clear Clear Clear Urine Odor Normal Normal Normal Comment patient to the comode with assist Voiding Methods Bedside Commode Bedside Commode Bedside Commode [facility] Medical History GERD (gastroesophageal reflux disease) (Chronic) Per pt. Hx of chest pain (Acute) Pt. was fully worked up at [facility], pt. states it was probably vascular spasms (see [facility] record) Obesity (Chronic) Polyarteritis nodosa (Acute) Thrombocythemia (Acute) Vasculitis (Chronic 10/09/17) See's rocío Everett in Rheumatology Surgical History (Updated 06/25/19 @ 13:25 by Sidney Lugo MD) Appendectomy Endometrial Ablation Hx of biopsy (Acute) Right femerol bone biopsy age 12. Social History Smoking/Tobacco Use Status: Never Alcohol Intake: never Drug use: Never Substance use type: does not use Current gender identity: female Do you feel safe at home: Yes Do you feel safe in your relationship?: Yes
--- NOTE | 2019-07-01 14:53 | CMDISCH_ITS ---
- If Service Date Differs Date of service: 07/01/19 Time of Service: 14:53 LACE Index Scoring Tool - Questions: Length of Stay (in days): 7 - 13 Acuity (Admit via E.D.?): No E.D. Visits: 2 - Answers: Total Score: 7 Risk of Readmission: Low Risk Care Management Discharge Reason for Hospitalization: Post-Op R Tibial osteotomy and P-F Joint Replacement Discharge Plan: Yvonne will return home with no additional services at this time. She will follow up with Ortho in one week, as recommended. CM coordinated a bariatric wheel chair for [place] through [employer]. Per Dr. Lugo, upon f/u in his office he will determine the need for HH PT/OT. Her family will pick her up and drive her home via private vehicle. She is agreeable to returning home, as a ramp has been built, and she has a w/c to use. Patient/Family Education Needs: Review discharge instructions regarding activity levels and medications, discussion of self care needs including ask me three.
== END 2019-07-01 12:44 | disposition home or self-care (01) | DRG 470 ==
LOC: PDS 09:48 → MS 17:31
PROVIDERS: Admitting Provider Orthopaedic Surgery; PCP Family Medicine; Visit Provider Orthopaedic Surgery
PROC: 0SRC0N9 Replacement of Right Knee Joint with Patellofemoral Synthetic Substitute, Cemented, Open Approach (ICD-10-PCS; CPT 27418; principal; 2019-06-24 09:30)
PROC: 0SRC0N9 Replacement of Right Knee Joint with Patellofemoral Synthetic Substitute, Cemented, Open Approach (ICD-10-PCS; CPT 27447; 2019-06-24 09:30)
DX: M22.01 Recurrent dislocation of patella, right knee (principal); Z68.43 Body mass index [BMI] 50.0-59.9, adult; M17.11 Unilateral primary osteoarthritis, right knee; Z96.651 Presence of right artificial knee joint; G89.18 Other acute postprocedural pain; M85.851 Other specified disorders of bone density and structure, right thigh; E66.9 Obesity, unspecified; K21.9 Gastro-esophageal reflux disease without esophagitis
CPT/HCPCS: 27442; 27455; 36415; 76000; 76942; 85027; 97110; 97162; 97530; NC; 73560; J0690; J1720; J1885; J2001; J2060; J2250; J2405; J2704; J2930; J7512; L1830

== ENCOUNTER 2019-07-10 10:54 | Outpatient (CLI) | payer BC, SELFPAY ==
--- NOTE | 2019-07-10 09:45 | DI.RAD_ITS ---
EXAM: XR KNEE RT 3V AP,LAT,ADEN CLINICAL HISTORY: 1ST POST OP TECHNIQUE: 2D digital imaging was performed. COMPARISON: XR KNEE RT 2V AP,LAT from 06/24/2019 FINDINGS: There has been no change in the patellofemoral prosthesis or patellar alignment. There is been some healing at the tibial tuberosity.
== END 2019-07-10 11:14 ==
PROVIDERS: PCP Family Medicine; Visit Provider Orthopaedic Surgery
DX: M22.01 Recurrent dislocation of patella, right knee (principal); M17.11 Unilateral primary osteoarthritis, right knee; Z96.651 Presence of right artificial knee joint
CPT/HCPCS: 73562

== ENCOUNTER 2019-08-07 11:16 | Outpatient (CLI) | payer BC, SELFPAY ==
--- NOTE | 2019-08-07 11:00 | DI.RAD_ITS ---
EXAM: XR KNEE RT 2V AP,LAT CLINICAL HISTORY: f/u knee TECHNIQUE: COMPARISON: XR KNEE RT 3V AP,LAT,ADEN from 07/10/2019 FINDINGS: Two views were obtained. Patello femoral joint replacement again noted in position with apparent pro ximal anterior tibial osteotomy and associated fixation screws. Alignment appears unchanged comparis on with examination of July 09. IMPRESSION:
== END 2019-08-07 11:36 ==
PROVIDERS: PCP Family Medicine; Visit Provider Orthopaedic Surgery
DX: Z96.651 Presence of right artificial knee joint (principal); Z47.1 Aftercare following joint replacement surgery
CPT/HCPCS: 73560

== ENCOUNTER 2019-09-18 11:16 | Outpatient (CLI) | payer BC, SELFPAY ==
--- NOTE | 2019-09-18 11:00 | DI.RAD_ITS ---
EXAM: XR KNEE RT 2V AP,LAT CLINICAL HISTORY: f/u surgery. TECHNIQUE: 2D digital imaging was performed. COMPARISON: CR XR KNEE RT 2V AP,LAT from 08/07/2019 FINDINGS: There are stable postsurgical changes of a patellofemoral replacement. There also postsurgical mcwilliams es again seen of an anterior tibial tuberosity transfer. Degenerative changes are seen in the femora l tibial joint. No acute fracture or dislocation is seen. The soft tissues are unremarkable. IMPRESSION: Stable postsurgical changes in the right knee. DATA REPOSITORY: RADIATION DOSE DELIVERED:
== END 2019-09-18 11:36 ==
PROVIDERS: PCP Family Medicine; Referring Provider Family Medicine; Visit Provider Orthopaedic Surgery
DX: Z96.651 Presence of right artificial knee joint (principal); Z47.1 Aftercare following joint replacement surgery
CPT/HCPCS: 73560

== ENCOUNTER 2019-09-18 12:36 | Outpatient (REF) | payer BC, SELFPAY ==
[2019-09-18 15:47] LABS: ALT 32 U/L (14-59); AST 20 U/L (15-37); Albumin 3.9 g/dL (3.4-5.0); Alkaline Phosphatase 163 U/L (46-116); Anion Gap 10.3 mmol/L (3-11); BUN 11 mg/dL (7-18); Bilirubin, Total 0.3 mg/dL (0.2-1.0); CO2 28.7 mmol/L (21.0-32.0); CREATININE 0.91 mg/dL (0.55-1.02); Calcium 9.6 mg/dL (8.5-10.1); Chloride 102 mmol/L (98-107); Glucose 90 mg/dL (74-106); PHOSPHORUS 3.5 mg/dL (2.6-4.7); Potassium 4.3 mmol/L (3.5-5.1); Sodium 141 mmol/L (136-145); TSH (W/Ref FT4) 2.96 uIU/mL (0.36-3.74); Total Protein 7.6 g/dL (6.4-8.2)
[2019-09-19 05:49] LABS: Vitamin D 25 Total 59.5 ng/ml (30-100)
[2019-09-19 10:10] LABS: Parathyroid Hormone,Intact 28 pg/mL (19-88)
[2019-09-23 13:22] LABS: IgA 126 mg/dL (85-499); Tissue Transglutaminase IgA <1.2 U/mL (<4.0)
== END 2019-09-18 12:56 ==
LOC: NCHCN 12:36
PROVIDERS: PCP Family Medicine; Visit Provider Family Medicine
DX: M25.561 Pain in right knee (principal); M81.0 Age-related osteoporosis without current pathological fracture
CPT/HCPCS: 80053; 82306; 82784; 83516; 83970; 84100; 84443

== ENCOUNTER 2019-10-30 10:21 | Outpatient (CLI) | payer BC, SELFPAY ==
--- NOTE | 2019-10-30 10:15 | DI.RAD_ITS ---
EXAM: XR KNEE RT 2V AP,LAT CLINICAL HISTORY: f/u. TECHNIQUE: 2D digital imaging was performed. COMPARISON: CR XR KNEE RT 2V AP,LAT from 09/18/2019 FINDINGS: There are stable postsurgical changes of patellofemoral joint replacement and anterior tibial tuberos ity transfer. Mild degenerative changes are seen in the femoral tibial joint. The soft tissues are unremarkable. IMPRESSION: DATA REPOSITORY: RADIATION DOSE DELIVERED:
== END 2019-10-30 10:41 ==
PROVIDERS: PCP Family Medicine; Referring Provider Family Medicine; Visit Provider Orthopaedic Surgery
DX: Z96.651 Presence of right artificial knee joint (principal); M17.11 Unilateral primary osteoarthritis, right knee
CPT/HCPCS: 73560

== ENCOUNTER 2020-01-17 02:12 | Outpatient (CLI) | payer BC, SELFPAY ==
[2020-01-18 20:24] LABS: COVID-19 RT-PCR Result NEGATIVE (Negative)
== END 2020-01-17 02:32 ==
PROVIDERS: PCP Family Medicine; Visit Provider Orthopaedic Surgery
DX: Z11.59 Encounter for screening for other viral diseases (principal); Z01.818 Encounter for other preprocedural examination
CPT/HCPCS: U0003

== ENCOUNTER 2020-01-20 06:33 | Day surgery (SDC) | payer BC, SELFPAY ==
[2020-01-20 06:38] VITALS: BP 144/82; PULSE 90; RESP 18; TEMP 36.6; O2SAT 98
[2020-01-20] MEDS: Lactated Ringers 1,000 ML 80 ML IV (07:15)
[2020-01-20] MEDS: ceFAZolin 2 GM/50 ML BAG IVPB (08:53)
[2020-01-20] MEDS: methylPREDNISolone ACETATE 80 MG/ML VIAL (10:40)
--- NOTE | 2020-01-20 10:59 | PDOC.DSDIS_ITS ---
Discharge Plan Disposition Patient Disposition: HOME Condition: Good Discharge Details Reason For Visit: ARTHROSCOPIC LYSIS OF ADHESIONS, MANIPULATION R KN Attending Provider: Sidney Lugo Primary Care Provider: Denise Wheeler Home Meds and New Rx's Prescriptions: New gabapentin 100 mg capsule 100 mg PO TID Qty: 30 RF: 1 oxycodone-acetaminophen 5-325 mg tablet 1 tab PO Q4H PRN (Reason: pain) Qty: 20 RF: 0 Continued furosemide 20 MG tablet 40 mg PO DAILY Qty: 2 RF: 0 dipyridamole 25 MG tablet 25 mg PO TID RF: 0 cholecalciferol (vitamin D3) [Vitamin D3] 2,000 UNIT capsule 4,000 unit PO HS RF: 0 prednisone 10 MG tablet 5 mg PO DAILY RF: 0 sildenafil [Viagra] 25 MG tablet 20 mg PO TID RF: 0 omeprazole 10 MG capsule,delayed release(DR/EC) 10 mg PO DAILY RF: 0 aspirin [Aspirin Low-Strength] 81 MG tablet,chewable 81 mg PO DAILY RF: 0 folic acid 1 MG tablet 2 mg PO HS RF: 0 calcium carbonate-vitamin D3 1 EACH tablet 3 tab PO DAILY RF: 0 nifedipine 60 mg Tablet Extended Release 60 mg PO DAILY RF: 0 methotrexate (PF) 25 mg/0.5 mL Auto-Injector 25 mg SUBCUT PER PROTOCOL RF: 0 Discharge Instructions Additional Instructions: Elevate R leg when sitting. Crutches or walker to walk. May put as much weight on R leg as your discomfort allows. Apply cryocuff to R knee continuously until tomorrow AM. Tomorrow, start to use 4 times/day for 1 hour each time. Do bending exercises for your R knee 4 times/day or more, if possible. Start outpatient physical therapy on Mon or for ROM of R knee. May remove dressings, shower, and get incisions wet after 48 hours. May leave incisions uncovered when they are dry and sealed. Follow up with in 2 weeks. Take gabapentin 3 times/day for 10 days as prescribed. Take oxycodone for breakthru pain, if needed. Referrals: Sidney Lugo MD [ [facility] STAFF PHYSICIAN] - (f/u in 2 weeks.) Equipment/Supplies: Partial Weight Bearing Crutches Activity:: Activity as Tolerated Remove Dressings/Wound Care:: 48 hours Shower/Bathe:: 48 hours Diet:: As Tolerated Discharge Orders Discharge Orders: Discharge Order (Routine); Ordered 01/20/20 Ordered By: Sidney Lugo DS: Diagnosis Discharge Diagnosis (1) Contracture, right knee: Status: Acute
[2020-01-20 11:00] VITALS: BP 112/52; PULSE 66; RESP 19; TEMP 36.9; O2SAT 100
[2020-01-20 11:05] VITALS: BP 127/56; PULSE 64; RESP 15; TEMP 36.9; O2SAT 99
[2020-01-20 11:10] VITALS: BP 113/94; PULSE 58; RESP 15; TEMP 36.9; O2SAT 97
[2020-01-20 11:25] VITALS: BP 137/79; PULSE 63; RESP 19; TEMP 36.8; O2SAT 95
[2020-01-20 12:04] VITALS: BP 130/72; PULSE 72; RESP 18; TEMP 36.3; O2SAT 95
[2020-01-20] MEDS: oxyCODONE-CR 10 MG TABCR PO (12:13)
--- NOTE | 2020-01-21 18:08 | ROE_ITS ---
Date of service: 01/20/20 Time of Service: 09:08 Operative Note Operative Note DATE OF PROCEDURE: 01/20/20 PRE-OP DIAGNOSIS: Contracture right knee POST-OP DIAGNOSIS: same PROCEDURE: Arthroscopic lysis of adhesions right knee with manipulation of right knee under general anesthesia. SURGEON: Sidney Lugo ANESTHESIA: KEN COMPLICATIONS: None Patient was transported to: PACU Patient's condition: stable Indications: This is a 44-year-old white female who underwent a Lencho tibial tubercle osteotomy along with a patellofemoral joint replacement of her right knee in July 2019. She developed an extension contracture following her postop immobilization. She has not been able to gain more than 30 degrees of flexion despite vigorous physical therapy. Now that her osteotomy is healed, I felt that manipulation could be performed to regain her flexion. I did feel however that she would require arthroscopic lysis of adhesions prior to manipulation because of the prolonged time since her surgery. Risk and complication of the procedure explained patient detail preop. Procedure Description: Patient was taken to the operating room on 01/20/2020 and placed supine operative table. General anesthetic was administered. Right thigh was placed in the arthroscopic leg johnson. The right knee was prepped and draped free in usual sterile fashion. Through an anterolateral portal the arthroscope was introduced into the suprapatellar pouch of the right knee. Through a superomedial portal the radiofrequency electrocautery wand was inserted. Using the electrocautery wand the quadriceps muscle was peeled off the anterior femur to re-create suprapatellar pouch. Medial lateral gutters were reestablished. Once I felt enough of the quadriceps muscle had been released from the femur, I decided to try manipulation. Patient was provided with good muscle relaxation by the service center appraiser. I then proceeded to manipulate the knee to flexion. I was able to manipulate the knee without much force. I was able to flex her to beyond 100 degrees. I felt that this was adequate no further manipulation was necessary. The knee was irrigated with saline solution using arthroscopy pump. The arthroscopic portals were infiltrated 0.5% Marcaine with epinephrine solution and then were approximated with interrupted 4 nylon sutures. There was separate puncture I injected into the knee 15 cc of 0.5% Marcaine with epinephrine solution 80 mg Depo-Medrol and 4 mg of morphine. Incisions were dressed with Xeroform gauze sterile gauze 4 x 4's ABD pad and wrapped with 6 inch Juan bandages for light pressure dressing. Patient's anesthesia was reversed without complications. She was discharged to recovery room in good condition. Patient was discharged home from day surgery unit and fully recovered from her general anesthesia. She will be weightbearing as tolerated to the right leg with crutches. She will begin outpatient physical therapy tomorrow for range of motion of her right knee postmanipulation. She may remove the dressing shower get her incision wet after 48 hours. She can leave the incisions uncovered when they are dry and sealed. She is to use her Cryo/Cuff on her right knee continuously overnight tonight. Tomorrow should use the Cryo/Cuff 4 times a day for an hour each time. She is given a prescription for swelling and inflammation of ibuprofen 800 mg p.o. 3 times daily. She is given a prescription for breakthrough pain of hydrocodone with APAP 08/10/2024 1 tab every 6 hours if needed. She is to follow-up with Dr. Lugo in 2 weeks.
== END 2020-01-20 12:51 | disposition home or self-care (01) ==
PROVIDERS: PCP Family Medicine; Visit Provider Orthopaedic Surgery
PROC: (CPT 29870; principal; 2020-01-20 07:45)
PROC: (CPT 27570; 2020-01-20 07:45)
DX: M23.8X1 Other internal derangements of right knee (principal); M24.561 Contracture, right knee
CPT/HCPCS: 29884; J0690; J1040; J1720; J1885; J2001; J2405

== ENCOUNTER 2020-05-13 03:54 | Outpatient (CLI) | payer BC, SELFPAY ==
[2020-05-13 14:21] LABS: Abs Immature Grans 0.16 10^3/uL (0.0-0.06); Absolute Eosinophil Count 0.08 10^3/uL (0.0-0.7); Absolute Monocyte Count 0.61 10^3/uL (0.1-0.8); Basophils % 0.3; Eosinophils % 0.4; HCT 38.7 % (36.0-46.0); HGB 12.2 g/dL (11.2-15.7); Immature Grans % 0.8; Lymphocytes % 10.1; MCH 29.8 pg (27.0-33.0); MCHC 31.5 % (32.0-36.0); MCV 94.6 fL (80-95); MPV 9.3 fL (8.0-11.0); Monocytes % 3.2; Neutrophils % 85.2; Nucleated RBC 0 %; Platelet Count 505 10^3/uL (130-400); RBC 4.09 10^6/uL (3.93-5.22); RDW-SD 51.8 fL; WBC 19.09 10^3/uL (4.4-10.8)
[2020-05-13 14:22] LABS: Absolute Basophil Count 0.06 10^3/uL (0.0-0.2); Absolute Lymphocyte Count 1.93 10^3/uL (1.2-3.4); Absolute Neutrophil Count 16.26 10^3/uL (1.2-6.7)
[2020-05-13 14:44] LABS: ALT 23 U/L (14-59); AST 12 U/L (15-37); Albumin 3.7 g/dL (3.4-5.0); Alkaline Phosphatase 157 U/L (46-116); Anion Gap 10.1 mmol/L (3-11); BUN 16 mg/dL (7-18); Bilirubin, Total 0.3 mg/dL (0.2-1.0); C-Reactive Protein 1.91 mg/dL (0.0-0.3); CO2 26.9 mmol/L (21.0-32.0); CREATININE 0.7 mg/dL (0.55-1.02); Calcium 9.1 mg/dL (8.5-10.1); Chloride 103 mmol/L (98-107); Glucose 101 mg/dL (74-106); Potassium 4.1 mmol/L (3.5-5.1); Sodium 140 mmol/L (136-145)
[2020-05-13 15:44] LABS: ESR 38 mm/hr (0-20)
[2020-05-13 17:04] LABS: Bilirubin Negative (Negative); Blood Negative (Negative); Clarity Clear (Clear); Glucose Negative (Negative); Ketones Negative (Negative); Leukocyte Esterase Negative (Negative); Nitrite Negative (Negative); Urobilinogen 0.2 EU/dL (Up TO 0.2)
[2020-05-13 17:18] LABS: PROTEIN 15.4 mg/dL
[2020-05-13 17:23] LABS: COMMENT (LAB VIEW ONLY) 160.91 mg/dL; Prot/Crea Ur Ratio 0.09
== END 2020-05-13 03:55 | disposition home or self-care (01) ==
LOC: LBO 03:54
PROVIDERS: PCP Family Medicine; Visit Provider Internal Medicine Rheumatology
DX: I77.6 Arteritis, unspecified (principal); Z79.899 Other long term (current) drug therapy; I70.208 Unspecified atherosclerosis of native arteries of extremities, other extremity
CPT/HCPCS: 36415; 80053; 85652; 81003; 82565; 84156; 85025; 86140

== ENCOUNTER 2020-06-11 04:10 | Outpatient (CLI) | payer BC, SELFPAY ==
[2020-06-11 10:15] LABS: Anion Gap 6.8 mmol/L (3-11); BUN 15 mg/dL (7-18); CO2 31.2 mmol/L (21.0-32.0); CREATININE 0.8 mg/dL (0.55-1.02); Calcium 9.2 mg/dL (8.5-10.1); Chloride 102 mmol/L (98-107); Glucose 97 mg/dL (74-106); Potassium 4.1 mmol/L (3.5-5.1); Sodium 140 mmol/L (136-145)
== END 2020-06-11 04:11 | disposition home or self-care (01) ==
LOC: LBO 04:11
PROVIDERS: PCP Family Medicine; Visit Provider Internal Medicine Rheumatology
DX: I73.00 Raynaud's syndrome without gangrene (principal); I77.6 Arteritis, unspecified; R53.83 Other fatigue; Z79.899 Other long term (current) drug therapy
CPT/HCPCS: 36415; 80048

== ENCOUNTER 2020-07-03 09:44 | Outpatient (CLI) | payer BC, SELFPAY ==
--- NOTE | 2020-07-03 13:48 | DI.RAD_ITS ---
EXAM: XR CHEST 2V PA LATERAL CLINICAL HISTORY: COUGH R05, FEVER 850.9 X 1 WEEK, NEG COVID TEST ON 06/28 AND 06/30 TECHNIQUE: 2D digital imaging was performed. COMPARISON: CR CHEST 2 VIEWS PA,LAT from 06/20/2016 FINDINGS: The heart is not enlarged. The lungs are clear and well expanded. No pleural effusion seen. Mediastin al contours appear intact. IMPRESSION: Normal chest. RADIATION DOSE DELIVERED: Total DLP
== END 2020-07-03 10:04 ==
PROVIDERS: PCP Family Medicine; Visit Provider Family Medicine
DX: R05 Cough (principal); R50.9 Fever, unspecified
CPT/HCPCS: 71046

== ENCOUNTER 2020-07-27 02:53 | Outpatient (CLI) | payer BC, SELFPAY ==
[2020-07-27 11:53] LABS: Source Nasal/Nares
[2020-07-27 16:11] LABS: COVID-19 PCR Negative (Negative)
== END 2020-07-27 02:54 | disposition home or self-care (01) ==
LOC: LBO 02:53
PROVIDERS: PCP Family Medicine; Visit Provider Student in an Organized Health Care Education/Training Program
DX: Z20.822 Contact with and (suspected) exposure to COVID-19 (principal); Z01.818 Encounter for other preprocedural examination
CPT/HCPCS: 87635

== ENCOUNTER 2020-07-28 10:52 | Day surgery (SDC) | payer BC, SELFPAY ==
--- NOTE | 2020-07-24 16:01 | NUR.NOTE ---
Pt. stated that she wants [place] to know that she has osteoporosis and when Parish placed screws she was told that it was like screwing into butter Pt. also stated she is going to follow-up via portal with her Performance Analyst Jazmyne in regards to holding her aspirin and Dipyridamole for procedure since offices are closed today (monday at 1600)Nursing Note:
[2020-07-28] VITALS (7 sets, daily range): BP systolic 129–165; BP diastolic 76–97; PULSE 76–91; RESP 12–18; TEMP 36.4–36.7; O2SAT 95–98
--- NOTE | 2020-07-28 07:49 | PDOC.DSDIS_ITS ---
Discharge Plan Disposition Patient Disposition: HOME Condition: Good Discharge Details Reason For Visit: Arthrofibrosis of right TKA Attending Provider: Aman Sinclair Primary Care Provider: Denise Wheeler Home Meds and New Rx's Prescriptions: New hydrocodone-acetaminophen 5-325 mg tablet 1 tab PO Q6H PRN (Reason: severe pain) Qty: 12 RF: 0 acetaminophen 500 mg tablet 500 mg PO Q6H PRN (Reason: pain) Qty: 60 RF: 2 ibuprofen 600 mg tablet 600 mg PO TID PRN (Reason: pain) Qty: 60 RF: 0 Continued furosemide 20 MG tablet 40 mg PO DAILY Qty: 2 RF: 0 dipyridamole 25 MG tablet 25 mg PO TID RF: 0 cholecalciferol (vitamin D3) [Vitamin D3] 2,000 UNIT capsule 4,000 unit PO HS RF: 0 prednisone 10 MG tablet 5 mg PO DAILY RF: 0 sildenafil [Viagra] 25 MG tablet 20 mg PO TID RF: 0 omeprazole 10 MG capsule,delayed release(DR/EC) 10 mg PO DAILY RF: 0 aspirin [Aspirin Low-Strength] 81 MG tablet,chewable 81 mg PO DAILY RF: 0 folic acid 1 MG tablet 2 mg PO HS RF: 0 calcium carbonate-vitamin D3 1 EACH tablet 3 tab PO DAILY RF: 0 nifedipine 60 mg Tablet Extended Release 60 mg PO DAILY RF: 0 methotrexate (PF) 25 mg/0.5 mL Auto-Injector 25 mg SUBCUT PER PROTOCOL RF: 0 Discharge Instructions Additional Instructions: Knee Manipulation Discharge Instructions Activity: You should begin moving as soon as possible. You may work on flexion but also equally maintain extension. You may bear weight as tolerated, using crutches only for support/comfort. You should apply ice to help with swelling and elevate when possible (especially in the first few days). Dressings: The knee dressing may come down after 48 hours. You may shower and get the wound wet at that time. You should keep the wounds covered with a bandaid until follow-up. Medications: - Recommend to take up to 1000mg of Acetaminophen (Tylenol) and 600mg of Ibuprofen (Advil) every 8 hours as needed. These larger strength tablets were called in but you also may use [id number]. - A short course of a narcotic medication, hydrocodone-acetaminophen, was prescribed for breakthrough pain. Follow-up: 7-10 days Referrals: Aman Sinclair MD [ [facility] STAFF PHYSICIAN] - Activity:: Activity as Tolerated Remove Dressings/Wound Care:: 48 hours Shower/Bathe:: 48 hours Diet:: As Tolerated Discharge Orders Discharge Orders: Discharge Order (Routine); Ordered 07/28/20 Ordered By: Daphne Min DS: Diagnosis Discharge Diagnosis (1) Arthrofibrosis of total knee arthroplasty: Status: Acute (2) Status post right partial knee replacement: Status: Acute
[2020-07-28] MEDS: Celecoxib 200 MG CAP 400 MG PO (12:06)
[2020-07-28] MEDS: Lactated Ringers 1,000 ML 80 ML IV (12:06)
[2020-07-28] MEDS: Gabapentin 300 MG CAP PO (12:06)
[2020-07-28] MEDS: ceFAZolin 3,000 MG in Normal Saline 100 ML 200 MG IVPB (13:05)
[2020-07-28] MEDS: Bupivacaine 0.5% Pres-Free 30 ML VIAL (14:04)
--- NOTE | 2020-07-28 16:42 | W.PM.OP ---
Date of service: 07/28/20 Time of Service: 13:43 Operative Note Operative Note DATE OF PROCEDURE: 07/28/20 PRE-OP DIAGNOSIS: Arthrofibrosis of right knee status post patellofemoral replacement and tubercle osteotomy POST-OP DIAGNOSIS: same PROCEDURE: Arthroscopic Synovectomy of 3 Compartments with Manipulation -right knee SURGEON: Aman Sinclair ANESTHESIA TYPE: General LMA/ETT Refer to Anesthesia Record ESTIMATED BLOOD LOSS: 0 PATHOLOGY: none sent COMPLICATIONS: None Patient was transported to: PACU Patient's condition: stable Indications: I have seen Darling in clinic for symptoms of arthrofibrosis of the knee following patellofemoral replacement and realignment surgery. Nonoperative measures were exhausted but disability due to lack of motion persisted. I discussed knee arthroscopy with synovectomy with manipulation with the patient. I reviewed the risks of the procedure to include, but not limited to, bleeding, infection, pain, continued stiffness, recurrence, blood clot. Despite these risks, the patient elected to proceed. Findings: Preoperative Range of Motion: Flexion: 80 Extension:0 Postoperative Range of Motion: Flexion:115 Extension:0 Procedure Description: Yvonne was greeted in the preoperative holding area where the correct side was identified and marked. The consent was reviewed with the patient and signed. The history and physical was updated. All questions were answered. Yvonne was taken back to the operating room. The patient was placed into the supine position on the operating room table. All bony prominences were well padded. Prophylactic antibiotics in the form of cefazolin were administered. Preoperative range of motion was assessed as 0 - 80. The right leg was then prepped with Chloraprep and draped in a standard fashion with stockinette and extremity drape. A timeout to confirm correct identity, side and site, procedure, allergies, anesthesia, and medical concerns was performed. The leg was placed into a pneumatic leg johnson, SPIDER2. A standard lateral portal was made at the lateral border of the patella tendon in line with the inferior pole of the patella, soft spot. The skin and deep tissue was incised sharply and the blunt trochar was inserted atraumatically. At this point had visualization of the femoral component. A superolateral portal was then established with spinal needle localization just superior and lateral to the patella. A knife was taken down through the skin and soft tissue to enter the knee joint. Starting in the superior compartment above the femoral component and anterior to the femur I released all scarring between the anterior femoral synovium and the overlying extensor mechanism. This was taken through all of any noticeable scar tissue until the superior patellar pouch was fully released and mobile. This resection was carried out mostly with electrocautery as well as shaver. Once this was released fully from lateral to medial superiorly I then continue working down the lateral gutter. All scar tissue in the lateral gutter was released so there is normal space and movement between the capsular tissues and the edge of the femoral component and femur. Care was taken as a move more distally to avoid disruption of the attachment of the meniscus in the periphery. There was notable scarring in this area with dense adhesions between the patella, talar tendon, and the anterior aspect of the knee. I then continue to work anteriorly. To continue the synovectomy from the lateral compartment to the anterior compartment into the medial compartment, I placed a medial portal under spinal needle localization. Once this was in place it became another working portal and I continued the synovectomy through the anterior compartment to the medial compartment. Once again, I freed up the medial gutter to release all adhesions between the patellar tendon, patella, and medial capsule. Adhesions between the capsule and the femur were released. This was continued up the medial gutter until it met up with the releases performed previously in the superior compartment. Any remnant scar tissue from around the patella was then removed with a shaver and electrocautery. There still was a good bit of bulk of tissue but the tissue seem to be released with now mobility of the patella. The arthroscope was brought back into the suprapatellar pouch and the leg was in full extension. The knee was thoroughly irrigated with the arthroscopic fluid on high flow and pressure. Inflow was stopped and excess fluid was removed. The leg was removed from the spider leg johnson and manipulation was performed. I was able to gain about 95 degrees of flexion without any effort. Given that I thought I would get a little bit more, I asked anesthesia to relax her muscles. Succinylcholine was administered I then performed a knee manipulation. I first pushed the knee into flexion and was able to obtain 115 degrees after some palpable and audible crepitus occurred in the anterior portion of the knee distal to the patella, likely related to the anterior adhesions seen. The wounds were closed with 4-0 Nylon. 0.5% bupivacaine was injected around the portal sites and into the knee. The wounds were dressed with Xeroform, 4x4 gauze, ABD pad, Kerlix and an ELLEN wrap. A cryo-cuff was applied. The patient tolerated the procedure well and was returned to the PACU in a stable condition suffering no known complication..
== END 2020-07-28 15:55 | disposition home or self-care (01) ==
PROVIDERS: PCP Family Medicine; Visit Provider Student in an Organized Health Care Education/Training Program
PROC: (CPT 29870; principal; 2020-07-28 13:30)
PROC: (CPT 27570; 2020-07-28 13:30)
DX: T84.82XA Fibrosis due to internal orthopedic prosthetic devices, implants and grafts, initial encounter (principal); Z96.651 Presence of right artificial knee joint
CPT/HCPCS: 29876; 27570; J0131; J0690; J1100; J1885; J2001; J2250; J2405

== ENCOUNTER 2021-04-06 02:04 | Outpatient (CLI) | payer BC, SELFPAY ==
--- NOTE | 2021-04-06 11:00 | DI.MAMMO_ITS ---
Exam(s) MAMMO SCREENING EXAM: MAMMO SCREENING CLINICAL HISTORY: SCREENING, Z12.39 TECHNIQUE: Mammograms were interpreted according to the usual protocol including computer analysis w [employer] CAD system, tomosynthesis and C-view imaging. COMPARISON: FINDINGS: The breasts are of moderate density with fairly symmetrical distribution of fibroglandular tissue. N o dominant mass or clumped microcalcification is identified in either breast. The current examinatio n is compared with previous examination of January 2012. There is a new asymmetric density projected in the lower outer quadrant of the right breast which is visible on both CC and MLO views. Addition al mammographic views are requested to include CC and MLO spot compression views of the right breast. Right breast ultrasound recommended as well. No other significant change seen. IMPRESSION: Additional mammographic views of the right breast and right breast ultrasound requested as described above. BI-RADS Category 0 - Assessment Incomplete: Need additional imaging evaluation Breast Density - Category B - Scattered areas of fibroglandular density
== END 2021-04-06 02:24 ==
PROVIDERS: PCP Family Medicine; Visit Provider Family Medicine
DX: Z12.31 Encounter for screening mammogram for malignant neoplasm of breast (principal); R92.8 Other abnormal and inconclusive findings on diagnostic imaging of breast
CPT/HCPCS: 77063; 77067

== ENCOUNTER 2021-04-30 01:15 | Outpatient (CLI) | payer BC, SELFPAY ==
--- NOTE | 2021-04-30 14:30 | DI.MAMMO_ITS ---
Exam(s) MAMMO SCREEN CALL BACK UNI EXAM: MAMMO SCREEN CALL BACK UNI CLINICAL HISTORY: F/U MAMMO, NEW ASYMMETRIC DENSITY RT BREAST TECHNIQUE: Spot compression views and tomographic imaging were performed. COMPARISON: 06 April 2021 and 2011 FINDINGS: No suspicious masses or suspicious microcalcifications are seen. No persistent abnormality is seen on the additional views performed. The findings are consistent wit h overlying fibroglandular tissue. IMPRESSION: BI-RADS Category 1, Negative Yearly screening mammography is recommended. Breast Density - Category B, scattered fibroglandular densities.
== END 2021-04-30 01:35 ==
PROVIDERS: PCP Family Medicine; Visit Provider Family Medicine
DX: Z12.31 Encounter for screening mammogram for malignant neoplasm of breast (principal); R92.8 Other abnormal and inconclusive findings on diagnostic imaging of breast; N64.59 Other signs and symptoms in breast
CPT/HCPCS: 77063; 77067

== ENCOUNTER 2021-05-19 11:36 | Outpatient (REF) | payer BC, SELFPAY ==
[2021-05-19 14:54] LABS: Hemoglobin A1C 5.8 % (<5.7)
[2021-05-20 11:49] LABS: HIV-1/2 Ag & Ab Screen Negative (Negative)
[2021-05-20 12:03] LABS: Hepatitis C Ab w Rflx HCV PCR Negative (Negative)
== END 2021-05-19 11:37 | disposition home or self-care (01) ==
LOC: NCHCN 11:36
PROVIDERS: PCP Family Medicine; Visit Provider Family Medicine
DX: Z00.00 Encounter for general adult medical examination without abnormal findings (principal); E66.8 Other obesity; Z11.4 Encounter for screening for human immunodeficiency virus [HIV]; Z13.1 Encounter for screening for diabetes mellitus; Z11.59 Encounter for screening for other viral diseases
CPT/HCPCS: 86803; 87389; 83036

== ENCOUNTER 2022-02-04 01:49 | Outpatient (CLI) | payer BC, SELFPAY ==
[2022-02-04 07:55] LABS: Bilirubin Negative (Negative); Blood Negative (Negative); Clarity Sl Cloudy (Clear); Glucose Negative (Negative); Ketones Negative (Negative); Leukocyte Esterase Negative (Negative); Nitrite Negative (Negative); Specific Gravity 1.025 (1.005-1.025); Urobilinogen 0.2 EU/dL (Up TO 0.2); pH 6.5 (5-8)
[2022-02-04 07:56] LABS: Abs Immature Grans 0.04 10^3/uL (0.0-0.06); Absolute Basophil Count 0.06 10^3/uL (0.0-0.2); Absolute Lymphocyte Count 2.01 10^3/uL (1.2-3.4); Absolute Monocyte Count 0.85 10^3/uL (0.1-0.8); Basophils % 0.4; Eosinophils % 0.8; HCT 40.8 % (36.0-46.0); HGB 12.9 g/dL (11.2-15.7); Immature Grans % 0.3; Lymphocytes % 13.8; MCH 29.4 pg (27.0-33.0); MCHC 31.6 % (32.0-36.0); MCV 93 fL (80-95); MPV 9.3 fL (8.0-11.0); Monocytes % 5.8; Neutrophils % 78.9; Platelet Count 431 10^3/uL (130-400); RBC 4.39 10^6/uL (3.93-5.22); RDW 13.8 % (11.7-14.6); RDW-SD 47.2 fL
[2022-02-04 07:57] LABS: Absolute Eosinophil Count 0.12 10^3/uL (0.0-0.7); Absolute Neutrophil Count 11.52 10^3/uL (1.2-6.7)
[2022-02-04 08:15] LABS: COMMENT (LAB VIEW ONLY) 287.57 mg/dL; PROTEIN 32.6 mg/dL; Prot/Crea Ur Ratio 0.11
[2022-02-04 08:17] LABS: Hemoglobin A1C 5.7 % (<5.7)
[2022-02-04 08:49] LABS: ALT 16 U/L (14-59); AST 12 U/L (15-37); Albumin 3.5 g/dL (3.4-5.0); Alkaline Phosphatase 144 U/L (46-116); Anion Gap 4.8 mmol/L (3-11); BUN 10 mg/dL (7-18); Bilirubin, Total 0.3 mg/dL (0.2-1.0); CO2 31.2 mmol/L (21.0-32.0); CREATININE 0.9 mg/dL (0.55-1.02); Chloride 104 mmol/L (98-107); Estimated GFR 79.85 (mL/min/1.73m2); Glucose 105 mg/dL (74-106); Potassium 3.9 mmol/L (3.5-5.1); Sodium 140 mmol/L (136-145); Total Protein 7.3 g/dL (6.4-8.2)
[2022-02-04 09:06] LABS: TSH (W/Ref FT4) 2.72 uIU/mL (0.36-3.74)
== END 2022-02-04 01:50 | disposition home or self-care (01) ==
LOC: LBO 01:49
PROVIDERS: PCP Family Medicine; Visit Provider Internal Medicine Rheumatology
DX: T38.0X5D Adverse effect of glucocorticoids and synthetic analogues, subsequent encounter (principal); E66.01 Morbid (severe) obesity due to excess calories; M81.0 Age-related osteoporosis without current pathological fracture; I73.00 Raynaud's syndrome without gangrene; I77.6 Arteritis, unspecified; R60.0 Localized edema; R73.03 Prediabetes
CPT/HCPCS: 36415; 80053; 82533; 81003; 82565; 83036; 84156; 84443; 85025

== ENCOUNTER 2024-03-04 18:57 | Outpatient (REF) | payer BC, SELFPAY ==
[2024-03-04 21:26] LABS: Abs Immature Grans 0.05 10^3/uL (0.0-0.06); Absolute Basophil Count 0.07 10^3/uL (0.0-0.2); Absolute Eosinophil Count 0.27 10^3/uL (0.0-0.7); Absolute Lymphocyte Count 2.82 10^3/uL (1.2-3.4); Absolute Neutrophil Count 12.74 10^3/uL (1.2-6.7); Basophils % 0.4 %; Eosinophils % 1.6 %; HCT 44.4 % (36.0-46.0); Immature Grans % 0.3 %; Lymphocytes % 16.6 %; MCH 28.9 pg (27.0-33.0); MCHC 31.5 % (32.0-36.0); MCV 92 fL (80-95); MPV 9.7 fL (8.0-11.0); Neutrophils % 75.1 %; Platelet Count 463 10^3/uL (130-400); RBC 4.85 10^6/uL (3.93-5.22); RDW 13.3 % (11.7-14.6); RDW-SD 44.8 fL; WBC 16.96 10^3/uL (4.4-10.8)
[2024-03-04 21:27] LABS: Absolute Monocyte Count 1.02 10^3/uL (0.1-0.8)
[2024-03-04 21:35] LABS: ALT 34 U/L (14-59); AST 19 U/L (15-37); Alkaline Phosphatase 159 U/L (46-116); Anion Gap 5.3 mmol/L (3-11); BUN 12 mg/dL (7-18); CO2 30.7 mmol/L (21.0-32.0); CREATININE 0.9 mg/dL (0.55-1.02); Calcium 9.9 mg/dL (8.5-10.1); Chloride 102 mmol/L (98-107); Estimated GFR 78.86 (mL/min/1.73m2); Glucose 94 mg/dL (74-106); Potassium 4.6 mmol/L (3.5-5.1); Sodium 138 mmol/L (136-145); Total Protein 7.7 g/dL (6.4-8.2)
== END 2024-03-04 18:58 | disposition home or self-care (01) ==
LOC: LBN 18:57
PROVIDERS: PCP Family Medicine; Visit Provider Nurse Practitioner Family
DX: I77.6 Arteritis, unspecified (principal)
CPT/HCPCS: 80053; 85025